=== PATIENT | female | born 1985 | race Caucasian/White ===

== ENCOUNTER 2019-08-28 01:19 | Emergency (ER) | payer OTHER, MEDICAID, SELFPAY ==
[2019-08-28 01:28] VITALS: BP 165/74; PULSE 88; RESP 20; TEMP 36.3; O2SAT 97
[2019-08-28 01:30] VITALS: BMI 47.6
--- NOTE | 2019-08-28 01:37 | ED.FEMALEGU ---
HPI - Female Genitourinary General Chief complaint: Urogenital-Female Stated complaint: left flank pain with nausea and vomiting 4 hours Time Seen by Provider: 08/28/19 01:29 Source: patient and family Mode of arrival: Ambulatory Limitations: no limitations History of Present Illness HPI Narrative: 33-year-old female nonsmoker with noncontributory medical history presents with her in the chief complaint of a sudden onset left flank pain that radiates into her groin. She states that it is very sharp and intense in nature and occasionally comes in waves that seemed to be unprovoked. She denies any recent injury. She has had multiple episodes of vomiting. She denies any change in bowel habits. She denies any burning, frequency or urgency with urination. She denies any history of kidney stone MD Complaint: pelvic pain Onset (ago): hour(s) Location: LLQ Female Urogenital Radiation: L Flank Severity: severe Quality: Sharp and Stabbing Duration: intermittent Relieving factors: none Exacerbating factors: none Urinary symptoms: Flank Pain Patient : No Associated symptoms: nausea/vomiting Related Data Previous Rx's Medication Instructions Recorded omeprazole magnesium [Prilosec OTC] 20 mg PO QDAY #30 11/12/16 ciprofloxacin HCl 500 mg PO BID #14 tab 08/28/19 hydrocodone-acetaminophen 1 tab PO Q4-6H PRN #10 tab 08/28/19 ketorolac 10 mg PO Q6H PRN #14 tab 08/28/19 tamsulosin [Flomax] 0.4 mg PO DAILY #10 cap 08/28/19 Allergies Allergy/AdvReac Type Severity Reaction Status Date / Time Sulfa (Sulfonamide Allergy Intermediate Verified 08/28/19 01:55 Antibiotics) [SULFA (SULFONAMIDE ANTIBIOTICS)] cefaclor [From CECLOR] Allergy Unknown Verified 08/28/19 01:55 latex [LATEX] Allergy Unknown Verified 08/28/19 01:55 oxycodone [OXYCODONE] Allergy Unknown STOPPED Verified 08/28/19 01:55 BREATHING Penicillins [PENICILLINS] Allergy Unknown Verified 08/28/19 01:55 Review of Systems Constitutional Constitutional: Denies chills, Denies fatigue, Denies fever(s), Denies frequent falls, Denies lethargy and Denies weakness Eyes Eyes: Denies change in vision, Denies eye discharge, Denies irritation and Denies loss of vision ENT Ears, Nose, Mouth, and Throat: Denies change in voice, Denies dizziness, Denies neck pain, Denies sore throat and Denies throat swelling Cardiovascular Cardiovascular: Denies chest pain, Denies irregular heart rhythm, Denies lightheadedness, Denies palpitations, Denies dyspnea, Denies dyspnea on exertion and Denies orthopnea Respiratory Respiratory: Denies cough, Denies dyspnea, Denies dyspnea on exertion and Denies wheezing Gastrointestinal Gastrointestinal: Denies abdominal pain, Denies change in bowel habits, Denies diarrhea, Denies nausea and Denies vomiting Genitourinary Genitourinary: Denies hematuria, Reports pelvic pain, Reports flank pain, Denies urinary incontinence and Denies urinary urgency Musculoskeletal Musculoskeletal: Denies back pain, Denies muscle weakness, Denies neck pain, Denies numbness and Denies tingling Integumentary/Breasts Skin/Breast: Denies pruritus, Denies erythema, Denies rash and Denies wounds Neurologic Neurologic: Denies behavioral changes, Denies confusion, Denies dizziness, Denies frequent falls, Denies loss of vision, Denies numbness, Denies tingling and Denies weakness Psychiatric Psychiatric: Denies anxiety, Denies behavioral changes, Denies confusion, Denies depression, Denies homicidal ideation and Denies suicidal ideation Endocrine Endocrine: Denies fatigue, Denies flushing and Denies palpitations Hematologic/Lymphatic Hematologic/Lymphatic: Denies easy bruising Allergic/Immunologic Allergic/Immunologic: Denies urticaria, Denies throat swelling and Denies wheezing Patient History marital status: housing: house Smoking Status: Never smoker Exam Narrative Exam Narrative: GENERAL: [33] year old patient appears stated age. Well-nourished, well-developed patient, in mild distress. Obviously in pain, rubbing her left leg, holding emesis bag HEAD: Atraumatic. Normocephalic. EYES: Pupils equal round and reactive. Extraocular motions intact. No scleral icterus. No injection or drainage. ENT: Nose without bleeding, purulent drainage. Throat without erythema, tonsillar hypertrophy or exudate. Airway patent. NECK: Trachea midline. Non tender CARDIOVASCULAR: Regular rate and rhythm without murmurs, gallops, or rubs. RESPIRATORY: Clear to auscultation. Breath sounds equal bilaterally. No wheezes, rales, or rhonchi. GASTROINTESTINAL: Abdomen soft, non-tender, nondistended. EXTREMITIES: No edema or joint tenderness. BACK: Nontender without deformity or crepitance. No flank tenderness. NEURO: AOx3. SKIN: No rash or erythema of visible areas Initial Vital Signs Initial Vital Signs: Vital Signs Temperature 97.4 F L 08/28/19 01:28 Pulse Rate 88 08/28/19 01:28 Respiratory Rate 20 08/28/19 01:28 Blood Pressure 165/74 H 08/28/19 01:28 Pulse Oximetry 97 08/28/19 01:28 Course Orders Ordered: ED Orders 08/28/19 01:38 CT kidney ureter bladder (KUB) Stat 08/28/19 01:40 Urine Culture Stat Urine Microscopic Stat 08/28/19 01:50 Basic Metabolic Panel Stat Complete Blood Count AUTO DIFF Stat Ondansetron HCl (Zofran) 4 mg IV Q4HR PRN PRN Reason: Nausea And Vomiting Last Admin: 08/28/19 01:56 Dose: 4 mg Documented by: RAYMON Discontinued Medications Hydrocodone Bitart/Acetaminophen (Vicodin 5/325 Prepack) 1 bottle MISC SEEINSTR ONE Stop: 08/28/19 03:55 Last Admin: 08/28/19 04:24 Dose: 1 bottle Documented by: RAYMON Hydromorphone HCl (Dilaudid) 0.5 mg IV NOW ONE Stop: 08/28/19 04:07 Last Admin: 08/28/19 04:24 Dose: 0.5 mg Documented by: RAYMON Sodium Chloride (Normal Saline 0.9%) 1,000 mls @ 1,000 mls/hr IV BOLUS ONE Stop: 08/28/19 03:36 Last Admin: 08/28/19 03:09 Dose: 1,000 mls/hr Documented by: RAYMON Ketorolac Tromethamine (Toradol) 15 mg IV NOW ONE Stop: 08/28/19 01:38 Last Admin: 08/28/19 01:55 Dose: 15 mg Documented by: RAYMON Levofloxacin (Levaquin) 500 mg PO NOW ONE Stop: 08/28/19 03:55 Last Admin: 08/28/19 04:24 Dose: 500 mg Documented by: RAYMON Vital Signs Vital signs: Vital Signs - 8 hr 08/28/19 01:28 Temperature 97.4 F L Pulse Rate 88 Respiratory Rate 20 Blood Pressure [Right Arm] 165/74 H Pulse Oximetry 97 MDM - Female Genitourinary Lab Data Result diagrams: 08/28/19 01:50 08/28/19 01:50 Labs: Lab Results 08/28/19 08/28/19 08/28/19 Range/Units 01:40 01:50 01:50 WBC 13.6 H (4.5-11.0) X10^3/uL RBC 5.04 (4.0-5.2) X10^6/uL Hgb 13.0 (12.0-16.0) g/dL Hct 38.8 (36-46) % MCV 77.1 L (80-100) fL MCH 25.9 L (26-34) PG MCHC 33.6 (30-36) % RDW 16.3 H (11.6-14.8) % Plt Count 278 (150-400) X10^3/uL Neut % (Auto) 85.3 H (50-75) % Lymph % (Auto) 10.4 L (25-40) % Swisher % (Auto) 3.5 (3-14) % Eos % (Auto) 0.1 L (2-4) % Baso % (Auto) 0.7 (0-2) % Neut # (Auto) 19508 H (1310-5313) /uL Lymph # (Auto) 1400 (8763-2036) /uL Swisher # (Auto) 500 (0-900) /uL Eos # (Auto) 0 (0-450) /uL Baso # (Auto) 100 (0-100) /uL Sodium 139 (137-145) mmol/L Potassium 4.5 (3.4-5.1) mmol/L Chloride 107 (98-107) mmol/L Carbon Dioxide 22 (22-32) mmol/L BUN 21 H (7-17) mg/dL Creatinine 0.90 (0.52-1.04) mg/dL Estimated GFR > 60.0 (>60) mL/min BUN/Creatinine Ratio 23.3 H (6-22) Glucose 128 H (70-100) mg/dL Calcium 9.7 (8.4-10.2) mg/dL Urine RBC None seen (0-5/HPF) Urine WBC 1-5/hpf (0-5/HPF) Ur Squamous Epith Cells 1-5 /hpf (0-5/HPF) Urine Bacteria Moderate (10-30) H (None) Urine Mucus 1+ H (Negative) Ur Culture Indicated? Specimen cultured Point of Care Testing Test Results Negative Urine Dip Bedside Urine Glucose Negative Bedside Urine Bilirubin + 1 Bedside Urine Ketone + 15 Urine Specific [place] 1.030 Bedside Urine Occult Blood - Negative Bedside Urine pH 5.5 Bedside Urine Protein +/- 15 Bedside Urine Urobilinogen - Negative Bedside Urine Nitrite - Negative Bedside Urine Leukocytes +/- [address] scan - abdomen/pelvis: Radiologist's Impression: 1 mm stone at left UVJ Discharge Plan Departure Patient Disposition: Home Clinical Impression: Kidney stone on left side Urinary tract infection Qualifiers: Urinary tract infection type: site unspecified Hematuria presence: without hematuria Qualified Code(s): N39.0 - Urinary tract infection, site not specified Instructions: DI for Kidney Stones Activity Restrictions/Additional Instructions: *You have been diagnosed with [acute left-sided ureteral stone with possible UTI] *What to do: *Take medications as directed: electronically sent to [facility] in [place] *Follow up with your primary care provider in 2-3 days, call for an appointment. Let them know you were seen in the Emergency Department and that we ask that you be seen in follow up *Return to ER if you should have any new, worsening or concerning symptoms Prescriptions: New hydrocodone-acetaminophen 5-325 mg tablet 1 tab PO Q4-6H PRN (Reason: pain) Qty: 10 RF: 0 ketorolac 10 mg tablet 10 mg PO Q6H PRN (Reason: pain) Qty: 14 RF: 0 tamsulosin [Flomax] 0.4 mg capsule 0.4 mg PO DAILY Qty: 10 RF: 0 ciprofloxacin HCl 500 mg tablet 500 mg PO BID Qty: 14 RF: 0 No Action omeprazole magnesium [Prilosec OTC] 20 MG tablet,delayed release (DR/EC) 20 mg PO QDAY Qty: 30 RF: 0 Referrals: Mariya Muñoz DO [Primary Care Provider] -
--- NOTE | 2019-08-28 01:38 | DI.CT.S_ITS ---
PROCEDURE: CT KIDNEY URETER BLADDER (KUB) INDICATIONS: severe LLQ and L flank pain TECHNIQUE: Noncontrast 5 mm thick sections acquired from the diaphragms to the symphysis. 5 mm thick coronal and sagittal reformats were then performed. For radiation dose reduction, the following was used: automated exposure control, adjustment of mA and/or kV according to patient size. COMPARISON: [facility], CT, CT ABDOMEN PELVIS WITH CONTRAST, 05/26/2017, 2:43. FINDINGS: Image quality: Excellent. Lung bases: Lung bases are clear. Heart size is normal. Urinary system: Both kidneys are normal size. No nephrolithiasis. No right hydronephrosis, hydroureter, or ureterolithiasis. There is mild left perinephric fat stranding. There is trace left hydronephrosis and hydroureter. A 2 mm calculus is present within the distal left ureter (series 2/image 81). Bladder is decompressed. No bladder stones. An IUD is present within the uterine fundus. There are likely bilateral low-density ovarian cysts both of which are likely physiologic by size in a premenopausal patient. Other solid organs: Liver is normal in size. Gallbladder is surgically absent. Pancreas is normal in contours. Spleen is normal in size. No adrenal nodules. Peritoneum and bowel: Unenhanced bowel loops demonstrate normal wall thickness and caliber. The appendix is thin walled. No free fluid or air. Nodes and vessels: No retroperitoneal or mesenteric adenopathy by size criteria. Aorta and inferior vena cava are normal in caliber. Abdominal wall: No ventral hernias. Pelvis: No free pelvic fluid. No inguinal hernias or adenopathy. Bones: No suspicious bony lesions. No vertebral body compression fractures. There are minimally displaced L5-S1 pars interarticularis defects as before. 18IMPRESSION: 1. 2 mm distal left ureteral calculus with mild left hydronephrosis, perinephric fat stranding, and hydroureter. These findings are concordant with the overnight interpretation. Dictated by: Roxy Bender M.D. on 08/28/2019 at 7:42 Approved by: Roxy Bender M.D. on 08/28/2019 at 7:56
[2019-08-28] MEDS: KETOROLAC 60 MG/2 ML VIAL 15 MG IV (01:55)
[2019-08-28] MEDS: ONDANSETRON 4 MG/2 ML INJ IV (01:56)
[2019-08-28 01:58] LABS: RBC Urine None Seen (0-5/HPF)
[2019-08-28 03:01] LABS: Bacteria Urine Moderate (10-30); Culture Indicated Urine Specimen Cultured; Mucus Urine 1+ (Negative); Squamous Epithelial Cell Urine 1-5 /HPF (0-5/HPF); WBC Urine 1-5/HPF (0-5/HPF)
[2019-08-28 03:07] LABS: Add Manual Diff / Slide Review NO; Basophils Absolute Auto 100 /uL (0-100); Basophils Percent Auto 0.7 % (0-2); Eosinophils Absolute Auto 0 /uL (0-450); Eosinophils Percent Auto 0.1 % (2-4); Hematocrit 38.8 % (36-46); Lymphocytes Absolute Auto 1400 /uL (1100-4500); Lymphocytes Percent Auto 10.4 % (25-40); Mean Corpuscular HGB Conc 33.6 % (30-36); Mean Corpuscular Hemoglobin 25.9 PG (26-34); Mean Corpuscular Volume 77.1 fL (80-100); Monocytes Absolute Auto 500 /uL (0-900); Monocytes Percent Auto 3.5 % (3-14); Neutrophils Absolute Auto 11600 /uL (1500-7000); Neutrophils Percent Auto 85.3 % (50-75); Platelet Count 278 X10^3/uL (150-400); Red Blood Cell Count 5.04 X10^6/uL (4.0-5.2); Red Cell Distribution Width 16.3 % (11.6-14.8); White Blood Cell Count 13.6 X10^3/uL (4.5-11.0)
[2019-08-28] MEDS: SODIUM CHLORIDE 0.9% 1,000 ML 1000 ML IV (03:09)
[2019-08-28 03:10] LABS: BUN Creatinine Ratio 23.3 (6-22); Blood Urea Nitrogen 21 mg/dL (7-17); Calcium 9.7 mg/dL (8.4-10.2); Carbon Dioxide 22 mmol/L (22-32); Chloride 107 mmol/L (98-107); Estimated Glomerular Filt Rate > 60.0 mL/min (>60); Glucose 128 mg/dL (70-100); HEMOLYSIS < 15 (0-50); Potassium 4.5 mmol/L (3.4-5.1); Sodium 139 mmol/L (137-145)
[2019-08-28] MEDS: HYDROMORPHONE 0.5 MG INJ IV (04:24)
[2019-08-28] MEDS: HYDROCODONE/ACET 5/325 PREPACK 1 BOTTLE MISC (04:24)
[2019-08-28] MEDS: levoFLOXacin 250 MG TABLET 500 MG PO (04:24)
[2019-08-28 04:53] VITALS: BP 165/84; PULSE 88; RESP 16; O2SAT 99
== END 2019-08-28 05:01 | disposition home or self-care (01) ==
PROVIDERS: Emergency Provider Emergency Medicine; Family Provider Family Medicine; PCP Family Medicine
DX: N20.0 Calculus of kidney (principal); N39.0 Urinary tract infection, site not specified
CPT/HCPCS: 36415; 74176; 80048; 81003; 81015; 81025; 85025; 87086; 96361; 96374; 96375; 99284; J1170; J1885; J2405

== ENCOUNTER 2019-11-10 17:58 | Emergency (ER) | payer OTHER, MEDICAID, SELFPAY ==
[2019-11-10 18:05] VITALS: BMI 46.0
--- NOTE | 2019-11-10 18:06 | DI.RAD.S_ITS ---
PROCEDURE: XR FOOT RT MIN 3V INDICATIONS: fall, pain TECHNIQUE: 3 views of the foot were acquired. COMPARISON: None. FINDINGS: Bones: No fractures or dislocations. No suspicious bony lesions. Soft tissues: No tibiotalar joint effusion. Achilles tendon appears normal. IMPRESSION: No visualized acute fracture or dislocation. However, if clinical concern and/or pain persist, short interval imaging followup in 7-10 days is recommended, as occult injury cannot be definitively excluded. Dictated by: Kathy Pacheco M.D. on 11/10/2019 at 18:31 Approved by: Kathy Pacheco M.D. on 11/10/2019 at 18:31
[2019-11-10 18:38] VITALS: BP 140/90; PULSE 86; RESP 16; TEMP 37; O2SAT 99
--- NOTE | 2019-11-10 18:50 | ED_ITS ---
HPI - Fall General Chief Complaint: Fall Stated Complaint: GLF 2 days ago, top R foot pain, radiates up leg Time Seen by Provider: 11/10/19 18:12 Source: patient Mode of arrival: Wheelchair Limitations: no limitations History of Present Illness HPI Narrative: 33F nonsmoker with history of kidney stones presents with ongoing right ankle pain since a fall two days ago. She was walking down stairs and when stepping onto the ground she misjudged the last step and twisted her ankle and fell. Her pain is worse with weightbearing and palpation and radiates up her kiser. She denies knee, hip or other pain. She has had no numbness, weakness or tingling. She denies any history of the same. MD complaint: fall Onset (ago): day(s) Fall from: standing Fall witnessed: no Place fall occurred: street Loss of consciousness: none Length of LOC: second(s) Prolonged down time: no Symptoms prior to fall: none Context: tripped/slipped Location of injury - extremities: Left: ankle Severity: moderate Quality: aching Related Data Previous Rx's Medication Instructions Recorded omeprazole magnesium [Prilosec OTC] 20 mg PO QDAY #30 11/12/16 ciprofloxacin HCl 500 mg PO BID #14 tab 08/28/19 hydrocodone-acetaminophen 1 tab PO Q4-6H PRN #10 tab 08/28/19 ketorolac 10 mg PO Q6H PRN #14 tab 08/28/19 tamsulosin [Flomax] 0.4 mg PO DAILY #10 cap 08/28/19 Allergies Allergy/AdvReac Type Severity Reaction Status Date / Time Sulfa (Sulfonamide Allergy Intermediate Verified 11/10/19 18:04 Antibiotics) [SULFA (SULFONAMIDE ANTIBIOTICS)] cefaclor [From CECLOR] Allergy Unknown Verified 11/10/19 18:04 latex [LATEX] Allergy Unknown Verified 11/10/19 18:04 oxycodone [OXYCODONE] Allergy Unknown STOPPED Verified 11/10/19 18:04 BREATHING Penicillins [PENICILLINS] Allergy Unknown Verified 11/10/19 18:04 Review of Systems Constitutional Constitutional: Denies chills, Denies fatigue, Denies fever(s), Denies frequent falls, Denies lethargy and Denies weakness Eyes Eyes: Denies change in vision, Denies eye discharge, Denies irritation and Denies loss of vision ENT Ears, Nose, Mouth, and Throat: Denies change in voice, Denies dizziness, Denies neck pain, Denies sore throat and Denies throat swelling Cardiovascular Cardiovascular: Denies chest pain, Denies irregular heart rhythm, Denies lighthe adedness, Denies palpitations, Denies dyspnea, Denies dyspnea on exertion and Denies orthopnea Respiratory Respiratory: Denies cough, Denies dyspnea, Denies dyspnea on exertion and Denies wheezing Gastrointestinal Gastrointestinal: Denies abdominal pain, Denies change in bowel habits, Denies diarrhea, Denies nausea and Denies vomiting Genitourinary Genitourinary: Denies hematuria, Denies flank pain, Denies urinary incontinence and Denies urinary urgency Musculoskeletal Musculoskeletal: Denies back pain, Reports joint swelling, Reports limited range of motion, Denies muscle weakness, Denies neck pain, Denies numbness, Reports radiating pain into limb and Denies tingling Integumentary/Breasts Skin/Breast: Denies pruritus, Denies erythema, Denies rash and Denies wounds Neurologic Neurologic: Denies behavioral changes, Denies confusion, Denies dizziness, Denies frequent falls, Denies loss of vision, Denies numbness, Denies tingling and Denies weakness Psychiatric Psychiatric: Denies anxiety, Denies behavioral changes, Denies confusion, Denies depression, Denies homicidal ideation and Denies suicidal ideation Endocrine Endocrine: Denies fatigue, Denies flushing and Denies palpitations Hematologic/Lymphatic Hematologic/Lymphatic: Denies easy bruising Allergic/Immunologic Allergic/Immunologic: Denies urticaria, Denies throat swelling and Denies wheezing Patient History Social History marital status: housing: house Smoking Status: Never smoker Smoking Status: Never smoker alcohol intake frequency: 0-2 drinks per day Substance Use Type: does not use Exam Narrative Exam Narrative: GENERAL: [33] year old patient appears stated age. Well- nourished, well-developed patient, in mild distress. HEAD: Atraumatic. Normocephalic. EYES: Pupils equal round and reactive. Extraocular motions intact. No scleral icterus. No injection or drainage. ENT: Nose without bleeding, purulent drainage. Throat without erythema, tonsillar hypertrophy or exudate. Airway patent. NECK: Trachea midline. Non tender CARDIOVASCULAR: Regular rate and rhythm without murmurs, gallops, or rubs. RESPIRATORY: Clear to auscultation. Breath sounds equal bilaterally. No wheezes, rales, or rhonchi. GASTROINTESTINAL: Abdomen soft, non-tender, nondistended. EXTREMITIES: TTP, edema and ecchymosis distal to lateral malleolus. Tender to palpation in distribution of ATF. Additional tenderness to squeeze of lower leg consistent with possible syndesmotic injury. Additional tenderness to palpation of proximal fibula. Otherwise knee exam normal. No effusion, ligamentous laxity or other bony tenderness. BACK: Nontender without deformity or crepitance. No flank tenderness. NEURO: AOx3. SKIN: No rash or erythema of visible areas Initial Vital Signs Initial Vital Signs: Vital Signs Temperature 98.6 F 11/10/19 18:38 Pulse Rate 86 11/10/19 18:38 Respiratory Rate 16 11/10/19 18:38 Blood Pressure 140/90 11/10/19 18:38 Pulse Oximetry 99 11/10/19 18:38 Procedures Orthopedic Splinting/Casting Injury #1: Side: right Lower Extremity Injury Location: ankle Lower Extremity Immobilizer: boot orthosis Other Orthopedic Equipment: crutches Post splinting neuro exam: intact Post splinting vascular exam: intact Placed by: Nursing Course Orders Ordered: ED Orders 11/10/19 18:06 XR foot RT min 3V Stat 11/10/19 18:53 XR ankle RT min 3V Stat XR knee RT 3V Stat Vital Signs Vital signs: Vital Signs - 8 hr 11/10/19 18:38 11/10/19 20:01 11/10/19 20:20 Temperature 98.6 F Pulse Rate 86 79 87 Respiratory Rate 16 17 15 Blood Pressure 138/84 Blood Pressure [Right Arm] 140/90 151/92 H Pulse Oximetry 99 98 98 MDM - Fall Imaging Data Extremity x-ray #1: Radiologist's Impression: Chart Viewer Diagnostics DATE TYPE STATUS AUTHOR Frantz 11/10/19 18:53 Kathy Pacheco 11/10/19 18:53 Kathy Pacheco 11/10/19 18:06 Kathy Pacheco 08/28/19 01:38 Roxy Bender Melissa L 33, F1985 [facility] ER, Main ED 170.18cm 133.356kg BMI: 46.0kg/m? Fall Search Chart No Data to Display STOPPED BREATHING ONSET 11/10/19 20:20 Anne Marie Stanley 33 F [address] [address] XRay Report Signed Patient: Anne Marie Stanley LMR#: [id number] : 1985Acct:[id number] Age/Sex: 33 / FDate of Service: 11/10/19 Loc: ED Accession Number: [id number] Procedure: XR foot RT min 3V Ordering Provider: Jovani Sanders D.O. PROCEDURE: XR FOOT RT MIN 3V INDICATIONS: fall, pain TECHNIQUE: 3 views of the foot were acquired. COMPARISON: None. FINDINGS: Bones: No fractures or dislocations. No suspicious bony lesions. Soft tissues: No tibiotalar joint effusion. Achilles tendon appears normal. IMPRESSION: No visualized acute fracture or dislocation. However, if clinical concern and/or pain persist, short interval imaging followup in 7-10 days is recommended, as occult injury cannot be definitively excluded. Dictated by: Kathy Pacheco M.D. on 11/10/2019 at 18:31 Approved by: Kathy Pacheco M.D. on 11/10/2019 at 18:31 Anne Marie Stanley 33 F [address] [address] XRay Report Signed Patient: Anne Marie Stanley LMR#: [id number] : 1985Acct:[id number] Age/Sex: 33 / FDate of Service: 11/10/19 Loc: ED Accession Number: [id number] Procedure: XR ankle RT min 3V Ordering Provider: Jovani Sanders D.O. PROCEDURE: XR ANKLE RT MIN 3V INDICATIONS: lateral mall tender to palp, swelling and ecchymosis TECHNIQUE: 3 views of the ankle were acquired. COMPARISON: [facility], , XR FOOT RT MIN 3V, 11/10/2019, 17:59. FINDINGS: Bones: No fractures or dislocations. Ankle mortise is normally aligned. No suspicious bony lesions. Soft tissues: Mild ankle edema. Achilles tendon appears normal. IMPRESSION: Mild ankle edema. No visualized acute fracture or dislocation. However, if clinical concern and/or pain persist, short interval imaging followup in 7-10 days is recommended, as occult injury cannot be definitively excluded. Dictated by: Kathy Pacheco M.D. on 11/10/2019 at 19:19 Approved by: Kathy Pacheco M.D. on 11/10/2019 at 19:20 Chart Viewer Diagnostics DATE TYPE STATUS AUTHOR Hx 11/10/19 18:53 Kathy Pacheco 11/10/19 18:53 Kathy Pacheco 11/10/19 18:06 Kathy Pacheco 08/28/19 01:38 Roxy Bender Melissa L 33, F1985 [facility], [facility] ED 170.18cm 133.356kg BMI: 46.0kg/m? Fall Search Chart No Data to Display STOPPED BREATHING ONSET 11/10/19 20:20 Anne Marie Stanley 33 F 1985 [place] [address] XRay Report Signed Patient: Anne Marie Stanley LMR#: [id number] : 1985Acct:[id number] Age/Sex: 33 / FDate of Service: 11/10/19 Loc: ED Accession Number: [id number] Procedure: XR knee RT 3V Ordering Provider: Jovani Sanders D.O. PROCEDURE: XR KNEE RT 3V INDICATIONS: proximal fibular tenderness after forceful ankle inversion TECHNIQUE: 3 views of the knee were acquired. COMPARISON: None. FINDINGS: Bones: No fractures or dislocations. No suspicious bony lesions. Soft tissues: No joint effusion. No suspicious soft tissue calcifications. IMPRESSION: No visualized acute fracture or dislocation. However, if clinical concern and/or pain persist, short interval imaging followup in 7-10 days is recommend ed, as occult injury cannot be definitively excluded. Dictated by: Kathy Pacheco M.D. on 11/10/2019 at 19:19 Approved by: Kathy Pacheco M.D. on 11/10/2019 at 19:19 Discharge Plan Departure Patient Disposition: Home Clinical Impression: High ankle sprain of right lower extremity Qualifiers: Encounter type: initial encounter Qualified Code(s): S93.491A - Sprain of other ligament of right ankle, initial encounter Ankle sprain Qualifiers: Encounter type: initial encounter Involved ligament of ankle: anterior talofibular ligament Laterality: right Qualified Code(s): S93.491A - Sprain of other ligament of right ankle, initial encounter Discharge Date/Time: 11/10/19 20:21 Instructions: How to Prevent Falls Activity Restrictions/Additional Instructions: *You have been diagnosed with [right ankle sprain with possible syndesmotic lesion] *What to do: *Take medications as directed: Motrin or Tylenol. Limited weight bearing. *Follow up with your primary care provider in 2-3 days, call for an appointment. Let them know you were seen in the Emergency Department and that we ask that you be seen in follow up *Return to ER if you should have any new, worsening or concerning symptoms Prescriptions: No Action omeprazole magnesium [Prilosec OTC] 20 MG tablet,delayed release (DR/EC) 20 mg PO QDAY Qty: 30 RF: 0 hydrocodone-acetaminophen 5-325 mg tablet 1 tab PO Q4-6H PRN (Reason: pain) Qty: 10 RF: 0 ketorolac 10 mg tablet 10 mg PO Q6H PRN (Reason: pain) Qty: 14 RF: 0 tamsulosin [Flomax] 0.4 mg capsule 0.4 mg PO DAILY Qty: 10 RF: 0 ciprofloxacin HCl 500 mg tablet 500 mg PO BID Qty: 14 RF: 0 Referrals: Amy Godfrey MD [Physician] - Mariya Muñoz DO [Primary Care Provider] -
--- NOTE | 2019-11-10 18:53 | DI.RAD.S_ITS ---
PROCEDURE: XR ANKLE RT MIN 3V INDICATIONS: lateral mall tender to palp, swelling and ecchymosis TECHNIQUE: 3 views of the ankle were acquired. COMPARISON: [facility], , XR FOOT RT MIN 3V, 11/10/2019, 17:59. FINDINGS: Bones: No fractures or dislocations. Ankle mortise is normally aligned. No suspicious bony lesions. Soft tissues: Mild ankle edema. Achilles tendon appears normal. IMPRESSION: Mild ankle edema. No visualized acute fracture or dislocation. However, if clinical concern and/or pain persist, short interval imaging followup in 7-10 days is recommended, as occult injury cannot be definitively excluded. Dictated by: Kathy Pacheco M.D. on 11/10/2019 at 19:19 Approved by: Kathy Pacheco M.D. on 11/10/2019 at 19:20
--- NOTE | 2019-11-10 18:53 | DI.RAD.S_ITS ---
PROCEDURE: XR KNEE RT 3V INDICATIONS: proximal fibular tenderness after forceful ankle inversion TECHNIQUE: 3 views of the knee were acquired. COMPARISON: None. FINDINGS: Bones: No fractures or dislocations. No suspicious bony lesions. Soft tissues: No joint effusion. No suspicious soft tissue calcifications. IMPRESSION: No visualized acute fracture or dislocation. However, if clinical concern and/or pain persist, short interval imaging followup in 7-10 days is recommended, as occult injury cannot be definitively excluded. Dictated by: Kathy Pacheco M.D. on 11/10/2019 at 19:19 Approved by: Kathy Pacheco M.D. on 11/10/2019 at 19:19
[2019-11-10 20:01] VITALS: BP 151/92; PULSE 79; RESP 17; O2SAT 98
[2019-11-10 20:20] VITALS: BP 138/84; PULSE 87; RESP 15; O2SAT 98
== END 2019-11-10 20:21 | disposition home or self-care (01) ==
PROVIDERS: Emergency Provider Emergency Medicine; Family Provider Family Medicine; PCP Family Medicine
DX: S93.491A Sprain of other ligament of right ankle, initial encounter (principal); W10.9XXA Fall (on) (from) unspecified stairs and steps, initial encounter
CPT/HCPCS: 73562; 73610; 73630; 99283; 99284

== ENCOUNTER → 2021-09-16 10:42 | Outpatient (CLI) | payer OTHER, MEDICAID, SELFPAY ==
--- NOTE | 2021-09-16 | DI.US.S_ITS ---
ULTRASOUND OF RIGHT AXILLA: 09/16/2021 CLINICAL: Palpable right axilla lump. Comparison is made to exam dated: 09/16/2021 mammogram - [facility]. Color flow and real-time ultrasound of the right axilla were performed. Reed scale images of the real-time examination were reviewed. No significant abnormalities were seen sonographically in the right axilla. IMPRESSION: NEGATIVE There is no sonographic evidence of malignancy. This exam was interpreted at Station ID: [id number]. Electronically Signed By: Jian Thakur M.D., jr/oliverio:09/16/2021 12:35:07 letter sent: Normal Exam Ultrasound BI-RADS: 1 Negative
--- NOTE | 2021-09-16 | DI.MG.S_ITS ---
BILATERAL DIGITAL DIAGNOSTIC MAMMOGRAM 3D/2D: 09/16/2021 CLINICAL: Palpable right axilla lump. No prior exams were available for comparison. The tissue of both breasts is extremely dense, which lowers the sensitivity of mammography. No significant masses, calcifications, or other findings are seen in either breast. IMPRESSION: INCOMPLETE: NEEDS ADDITIONAL IMAGING EVALUATION Normal mammogram. Right axillary ultrasound will be performed as there is a reported history of palpable fullness in the right axilla. This exam was interpreted at Station ID: [id number]. NOTE: For mammograms, a report in lay terms will be sent to the patient. Approximately 15% of breast malignancies will not be visualized mammographically. In the management of a palpable breast mass, a negative mammogram must not discourage biopsy of a clinically suspicious lesion. Electronically Signed By: Jian Thakur M.D. jr/:09/16/2021 12:31:05 Entry: cm - 09/17/2021 07:02:08 ACR BI-RADS Category 0: Incomplete 3340F
== END ==
PROVIDERS: Family Provider Family Medicine; PCP Nurse Practitioner; Referring Provider Physician Assistant Medical; Visit Provider Physician Assistant Medical
DX: N63.31 Unspecified lump in axillary tail of the right breast (principal); R92.8 Other abnormal and inconclusive findings on diagnostic imaging of breast
CPT/HCPCS: 76882; 77066; G0279

== ENCOUNTER → 2022-03-18 07:46 | Outpatient (CLI) | payer OTHER, SELFPAY | PROVIDERS: Family Provider Family Medicine; PCP Nurse Practitioner; Referring Provider Internal Medicine; Visit Provider Internal Medicine | DX: Z23 Encounter for immunization (principal) | CPT/HCPCS: 90471; 90686 ==

== ENCOUNTER 2022-05-01 15:43 | Emergency (ER) | payer OTHER, SELFPAY ==
[2022-05-01 16:03] VITALS: BP 145/90; PULSE 79; RESP 18; TEMP 36.7; O2SAT 98; BMI 43.8
[2022-05-01 18:13] LABS: Alanine Aminotransferase 31 IU/L (<35)
--- NOTE | 2022-05-01 18:32 | ED.GENADULT ---
HPI - General Adult <APPLE Cardenas - Last Filed: 05/01/22 18:37> General Chief complaint: Blood/Body fluid exposure Stated complaint: needle stick Time Seen by Provider: 05/01/22 17:54 History of Present Illness HPI narrative: This is a 36-year-old female presents to the emergency department for a needle stick with exposure after gave a vaccine to assess mental patient today in clinic. She accidentally stuck herself in his finger afterwards, there was small amount blood that came out, she washed her hands with Hibiclens afterwards and has not had any complications. She denies any further pain, states that the baby was getting his vaccinations and otherwise up-to-date on them. She has received a hepatitis booster as an adult. She declines wanting HIV or hepatitis prophylaxis Related Data Previous Rx's Medication Instructions Recorded omeprazole magnesium 20 mg 20 mg PO QDAY ##30 11/12/16 tablet,delayed release (Prilosec OTC) hydrocodone 5 mg-acetaminophen 325 1 tab PO Q4-6H PRN pain #10 tabs 08/28/19 mg tablet ketorolac 10 mg tablet 10 mg PO Q6H PRN pain #14 tabs 08/28/19 tamsulosin 0.4 mg capsule (Flomax) 0.4 mg PO DAILY #10 caps 08/28/19 Allergies Allergy/AdvReac Type Severity Reaction Status Date / Time Sulfa (Sulfonamide Allergy Intermediate Verified 01/03/22 16:30 Antibiotics) [SULFA (SULFONAMIDE ANTIBIOTICS)] cefaclor [From CECLOR] Allergy Unknown Verified 01/03/22 16:30 latex [LATEX] Allergy Unknown Verified 01/03/22 16:30 oxycodone [OXYCODONE] Allergy Unknown STOPPED Verified 01/03/22 16:30 BREATHING Penicillins [PENICILLINS] Allergy Unknown Verified 01/03/22 16:30 Review of Systems <APPLE Cardenas - Last Filed: 05/01/22 18:37> Review of Systems Narrative: Review of systems is negative for acute abnormalities unless otherwise noted in HPI Patient History <APPLE Cardenas - Last Filed: 05/01/22 18:37> Social History marital status: housing: house Smoking Status: Never smoker Smoking Status: Never smoker alcohol intake frequency: 0-2 drinks per day Substance Use Type: does not use Exam <APPLE Cardenas - Last Filed: 05/01/22 18:37> Narrative Exam Narrative: Reviewed vitals signs and nursing notes. General: cooperative, comfortable, in no acute distress, well groomed Skin: brisk capillary refill, without pallor or erythema, small puncture wound to finger which has healed over Neuro: normal speech and cognition, A&O x3, ambulatory, clear speech Psych: mental status is grossly normal, congruent mood, normal affect, pleasant and cooperative Initial Vital Signs Initial Vital Signs: Vital Signs Temperature 98.1 F 05/01/22 16:03 Pulse Rate 79 05/01/22 16:03 Respiratory Rate 18 05/01/22 16:03 Blood Pressure 145/90 H 05/01/22 16:03 Pulse Oximetry 98 05/01/22 16:03 Oxygen Delivery Method 05/01/22 16:03 <Fausto Tolentino MD - Last Filed: 05/02/22 02:04> Initial Vital Signs Initial Vital Signs: Vital Signs Temperature 98.1 F 05/01/22 16:03 Pulse Rate 79 05/01/22 16:03 Respiratory Rate 18 05/01/22 16:03 Blood Pressure 145/90 H 05/01/22 16:03 Pulse Oximetry 98 05/01/22 16:03 Oxygen Delivery Method 05/01/22 16:03 Course <APPLE Cardenas - Last Filed: 05/01/22 18:37> Orders Ordered: Discontinued Medications Diphtheria/Tetanus/Acell Pertussis (Tet,Diph,Pertuss(Acell),Vac/Pf 0.5 Ml Syringe) 0.5 ml IM .ONCE ONE Stop: 05/01/22 18:15 Last Admin: 05/01/22 18:43 Dose: 0.5 ml Documented By: MELLISA Vital Signs Vital signs: Vital Signs - 8 hr 05/01/22 16:03 Temperature 98.1 F Pulse Rate 79 Respiratory Rate 18 Blood Pressure 145/90 H Pulse Oximetry 98 Oxygen Delivery Method Room Air <Fausto Tolentino MD - Last Filed: 05/02/22 02:04> Orders Ordered: Discontinued Medications Diphtheria/Tetanus/Acell Pertussis (Tet,Diph,Pertuss(Acell),Vac/Pf 0.5 Ml Syringe) 0.5 ml IM .ONCE ONE Stop: 05/01/22 18:15 Last Admin: 05/01/22 18:43 Dose: 0.5 ml Documented By: MELLISA Vital Signs Vital signs: Vital Signs - 8 hr 05/01/22 16:03 Temperature 98.1 F Pulse Rate 79 Respiratory Rate 18 Blood Pressure 145/90 H Pulse Oximetry 98 Oxygen Delivery Method Room Air Medical Decision Making <APPLE Cardenas - Last Filed: 05/01/22 18:37> Lab Data Labs: Lab Results 05/01/22 05/01/22 Range/Units 17:52 17:52 ALT 31 (<35) IU/L Hep Bs Antigen Negative (NEGATIVE) s/c Hepatitis C Antibody Negative (NEGATIVE) s/c HIV 1&2 Ab/P24 Ag 4thGn Negative (NEGATIVE) MDM Narrative Medical decision making narrative: This is a 36-year-old female who works over at the [employer] who presents with a needlestick injury with blood borne exposure after vaccinating a 6-month-old infant today. Paperwork packet for exposures was filled out by myself and the patient, she was dropping off at [employer], she declines hepatitis booster as well as HIV prophylaxis and hepatitis prophylaxis. She is received the hepatitis booster as an adult. Otherwise she is up-to-date on her vaccinations. [id number], Adacel was updated today. Patient is appropriate and amenable to discharge home. Vital signs are stable on repeat examination is unremarkable. Patient has been informed of results. Patient has been given strict return to ER precautions for any new or worsening symptoms. Patient understands to follow up closely with outpatient providers as instructed. Patient understands plan and agrees to discharge home. All questions and concerns answered at this time. <Fausto Tolentino MD - Last Filed: 05/02/22 02:04> Lab Data Labs: Lab Results 05/01/22 05/01/22 Range/Units 17:52 17:52 ALT 31 (<35) IU/L Hep Bs Antigen Negative (NEGATIVE) s/c Hepatitis C Antibody Negative (NEGATIVE) s/c HIV 1&2 Ab/P24 Ag 4thGn Negative (NEGATIVE) Discharge Plan Departure Patient Disposition: Home Clinical Impression: Needlestick injury accident, Work related injury, Exposure to blood or body fluid Instructions: DI for Accidental Exposure to Body Fluids Activity Restrictions/Additional Instructions: *You have been diagnosed with needle stick and blood borne exposure. Please follow-up with employee health if they call you and have questions or have information for you. Your labs were drawn, this is in employee health hands now, they will source the patient and follow-up accordingly. Thank you for your patients today, I hope that you have a nice weekend. [id number], your tetanus was updated today, you do not need another for 10 years. *What to do: *Please continue to take your regular medications as directed. [ ] New medication prescriptions sent to your pharmacy: [ ] [ ] New medication written as a paper prescription [x ] No new medications given *Please follow up with your primary care provider in 2-3 days, call for an appointment. Let them know you were seen in the Emergency Department and that we asked that you be seen for follow-up. We will electronically transmit a record of today's note if your PCP is in our system *If you do not have a primary care provider please contact [phone] to establish care with one of [facility] primary care providers. *Return to Emergency Department if you should have any new, worsening, or concerning symptoms, such as [fever greater than 101F, chills, worsening pain, persistent vomiting or other bothersome symptoms]. Prescriptions: No Action omeprazole magnesium [Prilosec OTC] 20 MG tablet,delayed release (DR/EC) 20 mg PO QDAY Qty: 30 0RF hydrocodone-acetaminophen 5-325 mg tablet 1 tab PO Q4-6H PRN (Reason: pain) Qty: 10 0RF ketorolac 10 mg tablet 10 mg PO Q6H PRN (Reason: pain) Qty: 14 0RF tamsulosin [Flomax] 0.4 mg capsule 0.4 mg PO DAILY Qty: 10 0RF Referrals: Olinda Long ARNP [Primary Care Provider] - Visit Report Forms: Patient Portal/API <Fausto Tolentino MD - Last Filed: 05/02/22 02:04> [facility]: I was immediately available in the department for consultation. ?This documentation has been reviewed and I agree with assessment and plan. Supervised by Fausto Tolentino MD
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
[2022-05-01] MEDS: TET,DIPH,PERTUSS(ACELL),VAC/PF 0.5 ML SYRINGE IM (18:43)
[2022-05-01 18:50] LABS: Hepatitis B Surface Antigen NEGATIVE s/c (NEGATIVE)
[2022-05-01 19:04] LABS: HIV 1 & 2 Ab/Ag 4th Gen Combo NEGATIVE (NEGATIVE); Hep C Virus Ab w/Reflex Quant NEGATIVE s/c (NEGATIVE)
[2022-05-03 03:10] LABS: Hepatitis B Surf Ab Qualitativ Reactive (.)
== END 2022-05-01 18:45 | disposition home or self-care (01) ==
PROVIDERS: Emergency Medicine; Emergency Provider Nurse Practitioner Critical Care Medicine; Family Provider Family Medicine; PCP Nurse Practitioner
DX: S61.239A Puncture wound without foreign body of unspecified finger without damage to nail, initial encounter (principal); W26.8XXA Contact with other sharp object(s), not elsewhere classified, initial encounter; Y92.531 Health care provider office as the place of occurrence of the external cause; Y99.0 Civilian activity done for income or pay; Z23 Encounter for immunization; Z77.21 Contact with and (suspected) exposure to potentially hazardous body fluids
CPT/HCPCS: 90471; 96372; 99283; 90715

== ENCOUNTER → 2022-09-12 15:42 | Outpatient (CLI) | payer OTHER, MEDICAID, SELFPAY ==
--- NOTE | 2022-09-12 | DI.CT.S_ITS ---
PROCEDURE: CT SINUS SCREEN WO CON INDICATIONS: Chronic pansinusitis TECHNIQUE: Noncontrast 3.0 mm axial images acquired from the frontal sinuses to the mid-sella, with coronal and sagittal reformats. For radiation dose reduction, the following was used: automated exposure control, adjustment of mA and/or kV according to patient size. COMPARISON: None. FINDINGS: Image quality: Excellent. Maxillary Sinuses: There is a prominent mucous retention cyst seen within the left maxillary sinus. Mild areas of mucosal thickening can be seen elsewhere within the maxillary sinuses. Mild bony demineralization can be seen involving the medial wall of the left maxillary sinus. Ethmoid Air Cells: No bony remodeling or destruction. Sinuses are clear. Sphenoid Sinuses: No bony remodeling or destruction. Sinuses are clear. Frontal Sinuses: No bony remodeling or destruction. Sinuses are clear. Ostiomeatal Complexes: The ostiomeatal complexes are patent, yet they are constitutionally narrowed, with bilateral Red cells. Miscellaneous: Visualized intra-orbital contents are normal. No jenn bullosa or paradoxical turbinate curvature. There is mild to moderate rightward nasal septal deviation. IMPRESSION: Focal left maxillary sinus mucous retention cyst. Milder paranasal sinus disease is seen elsewhere. The ostiomeatal complexes are patent, yet they are constitutionally narrowed, with bilateral Red cells. [id number]-[id number] rightward nasal septal deviation can be seen. Dictated by: Jeremy Levine M.D. on 09/12/2022 at 15:48 Approved by: Jeremy Levine M.D. on 09/12/2022 at 15:50
== END ==
PROVIDERS: Family Provider Nurse Practitioner; PCP Nurse Practitioner; Referring Provider Otolaryngology; Visit Provider Otolaryngology
DX: R09.82 Postnasal drip (principal); J32.4 Chronic pansinusitis; J34.1 Cyst and mucocele of nose and nasal sinus; J34.2 Deviated nasal septum
CPT/HCPCS: 70486

== ENCOUNTER 2022-11-12 09:00 | Outpatient (RCR) | payer OTHER, SELFPAY ==
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
--- NOTE | 2022-09-10 18:14 | PT.OPPOC ---
Physical, Occupational & Speech Therapy At [facility] Current Diagnoses Pain in right shoulder (09/10/22) Abnormal posture (09/10/22) Weakness (09/10/22) Visit Care Team Role Provider Type APPLE Mirza Attending Provider Non-Staff Family Provider Primary Care Provider Referring Provider Specialty: Nursing Address: [facility] [address], [address], [place], [address] Email: Plan Of Care PT-OP-T Assessment and Plan Start: 09/04/22 18:01 Freq: Status: Active Protocol: Document 09/10/22 08:09 [facility] (Rec: 09/10/22 09:51 [facility] [id number]) Physical Therapy Assessment Rehab Potential Rehabilitation Potential Good Evaluation Complexity Number of Personal Factors/Comorbidities 3 or More Number of Body Systems Impaired 4 or More Clinical Presentation at Evaluation Evolving Impairments Impairments Activity Tolerance,Functional Activities,Functional Mobility ,Pain,Posture,ROM,Soft Tissue Mobility,Strength Goals ROM Assisted Goal (LTG) Pt will have full RUE ROM w/o inc pain to allow pt to do typical ADLs like reaching to pull covers, reaching overhead etc LTG Duration 11/19/22 quick dash Impairment 40.9 Short Term Goal (STG) Pt will score no higher than 28 on quick dash to show improved UE function. STG Duration 10/19/22 Footwear Sales Coordinator Goal (LTG) Pt will score no higher than 8 on quick dash to show improved UE function. LTG Duration 11/19/22 strength Short Term Goal (STG) Pt will be indep w/HEP for ROM , strength and stability. STG Duration 10/19 Footwear Sales Coordinator Goal (LTG) Pt will score at least 4+/5 on BUE MMT and at least 3/5 on EFT to show improved stability and strength to allow pt to do her typical daily tasks w/o inc pain. LTG Duration 11/19/22 Assessment Summary Assessment Pt presents w/c/o pain that started in R elbow and has progressed to going down post forearm into post fingers 3-5 and up to shoulder. Pt now has R shoulder pain in ant/sup shoulder with overhead motions and is positive for impingement testing. She also was positive w/thoracic outlet testing w/Costoclavicular test along w/tension B w/ median, radial and ulnar nerves. She likely has nerve impingment that started this issue and progressed further to also have impingment syndrome based on movement mechanics and posture. Pt would benefit from skilled PT to address this in order to improve pt function. Physical Therapy Plan Frequency and Duration Frequency of Treatment 2x/wk5wk;1x/wk 5 wk Duration of treatment (weeks) 10 Plan of Care Start Date 09/10/22 Plan of Care End Date 11/19/22 Therapeutic Interventions Therapeutic Interventions Home Exercise Program,Joint Mobilizations,Manual Therapy, Neuromuscular Re-education, Patient/Caregiver Education, Self-Care/Home Management,Soft Tissue Mobilization,Taping, Therapeutic Activities, Therapeutic Exercises Modalities Cold Pack/Ice Massage,Electric Stimulation,Hot Packs, Infrared Therapy,Iontophoresis ,Traction- Mechanical, Ultrasound Next Visit Focus/Plan Next Note Type Treatment Note Next Visit Plan axial elongation training, foam roll stretch, wall posture, B shoulder ext, STM to pec, scalenes, SCM, work on rib mobility, manubrium and upper thoracic vertebrae Plan of Care Dates Plan of Care Start Date 09/10/22 Plan of Care End Date 11/19/22 Electronically Signed by: Rosalee Barrera, PT 09/10/22 7009 If you are in agreement with this Plan of Care, please return a signed and dated copy. I have reviewed this Plan of Care and certify that the skilled therapy services above are required to meet the patient?s needs. Physician Signature Date Printed Name and Credentials Clinical Instructor Signature Printed Name and Credentials
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
--- NOTE | 2022-10-29 13:51 | PT.OPPOC ---
Physical, Occupational & Speech Therapy At [facility] Current Diagnoses Pain in right shoulder (10/29/22) Abnormal posture (10/29/22) Weakness (10/29/22) Visit Care Team Role Provider Type APPLE Mirza Attending Provider Non-Staff Family Provider Primary Care Provider Referring Provider Specialty: Nursing Address: [facility] [address]asha Wong, [address], [place], [address] Email: Plan Of Care PT-OP-T Assessment and Plan Start: 09/04/22 18:01 Freq: Status: Active Protocol: Document 10/29/22 12:46 [facility] (Rec: 10/29/22 12:55 [facility] [id number]) Physical Therapy Assessment Goals ROM Senior Clinical Consultant Goal (LTG) Pt will have full RUE ROM w/o inc pain to allow pt to do typical ADLs like reaching to pull covers, reaching overhead etc 10/29-improved ROM w/overhead but still limited LTG Duration 12/23 quick dash Impairment 40.9 Short Term Goal (STG) Pt will score no higher than 28 on quick dash to show improved UE function. 10/29-34.1 STG Duration 11/29 [facility] Goal (LTG) Pt will score no higher than 8 on quick dash to show improved UE function. LTG Duration 12/23 strength Short Term Goal (STG) Pt will be indep w/HEP for ROM , strength and stability. STG Duration achieved-advancing as able [facility] Goal (LTG) Pt will score at least 4+/5 on BUE MMT and at least 3/5 on EFT to show improved stability and strength to allow pt to do her typical daily tasks w/o inc pain. 10/29-much improved strength overall LTG Duration 01/07 Assessment Summary Assessment Pt is making progress w/PT slowly but has been limited wother pain. Unablet o start treatment on back d/t GI said to wait until inflamation of liver dec as pt had pain w /trying 1 core exercise w/PT. She is working on HEP and it is being progressed as needed. Her strength is much improved and ROM gradually improving. Her R ext imrpoved by 10 deg w /manual today. Cont PT to dec pain and improve pt mobility. Physical Therapy Plan Frequency and Duration Frequency of Treatment 1-2x/wk Duration of treatment (weeks) 10 Plan of Care Start Date 10/29/22 Plan of Care End Date 01/07/23 Therapeutic Interventions Therapeutic Interventions Home Exercise Program,Joint Mobilizations,Manual Therapy, Neuromuscular Re-education, Patient/Caregiver Education, Self-Care/Home Management,Soft Tissue Mobilization,Taping, Therapeutic Activities, Therapeutic Exercises Modalities Cold Pack/Ice Massage,Electric Stimulation,Hot Packs, Infrared Therapy,Iontophoresis ,Traction- Mechanical, Ultrasound Next Visit Focus/Plan Next Note Type Treatment Note Next Visit Plan cont to work on pt ability to get abd, ext w/ER and full flex &IR Plan of Care Dates Plan of Care Start Date 10/29/22 Plan of Care End Date 01/07/23 Electronically Signed by: Rosalee Barrera, PT 10/29/22 3300 If you are in agreement with this Plan of Care, please return a signed and dated copy. I have reviewed this Plan of Care and certify that the skilled therapy services above are required to meet the patient?s needs. Physician Signature Date Printed Name and Credentials Clinical Instructor Signature Printed Name and Credentials
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
== END 2022-11-20 15:56 | disposition home or self-care (01) ==
LOC: PHYS 09:00
PROVIDERS: Family Provider Nurse Practitioner; PCP Nurse Practitioner; Referring Provider Nurse Practitioner; Visit Provider Nurse Practitioner
DX: M25.511 Pain in right shoulder (principal); R53.1 Weakness; R29.3 Abnormal posture
CPT/HCPCS: 97110; 97140; 97162; 97535

== ENCOUNTER → 2022-11-26 08:26 | Outpatient (CLI) | payer OTHER, SELFPAY ==
--- NOTE | 2022-11-26 | DI.CT.S_ITS ---
PROCEDURE: CT SINUS SCREEN WO CON INDICATIONS: Acute sinusitis, unspecified TECHNIQUE: Noncontrast 3.0 mm axial images acquired from the frontal sinuses to the mid-sella, with coronal and sagittal reformats. For radiation dose reduction, the following was used: automated exposure control, adjustment of mA and/or kV according to patient size. COMPARISON: [facility], CT, CT SINUS SCREEN WO CON, 09/12/2022, 15:46. FINDINGS: Image quality: Excellent. Maxillary Sinuses: Moderate polypoidal mucosal filling defect of the left maxillary sinus and smaller polypoidal filling defect of the right maxillary sinus. No bony expansion, remodeling or sclerosis. Ethmoid Air Cells: No bony remodeling or destruction. Sinuses are clear. Sphenoid Sinuses: No bony remodeling or destruction. Sinuses are clear. Frontal Sinuses: No bony remodeling or destruction. Sinuses are clear. Ostiomeatal Complexes: Ostiomeatal complexes are patent. No Red cells. Miscellaneous: Visualized intra-orbital contents are normal. No jenn bullosa or paradoxical turbinate curvature. No nasal septal deviation. Bilateral Red cells. Questionable right Onodi cells. Keros type 2. IMPRESSION: Polypoidal mucosal thickening of the left greater than right maxillary sinuses. Suspect bilateral Red cells and right Onodi cells. Dictated by: Luan Romero M.D. on 11/26/2022 at 9:42 Approved by: Luan Romero M.D. on 11/26/2022 at 9:48
== END ==
PROVIDERS: Family Provider Nurse Practitioner; PCP Nurse Practitioner; Referring Provider Otolaryngology; Visit Provider Otolaryngology
DX: J01.90 Acute sinusitis, unspecified (principal); J32.0 Chronic maxillary sinusitis; R51.9 Headache, unspecified
CPT/HCPCS: 70486

== ENCOUNTER → 2023-02-12 17:04 | Outpatient (CLI) | payer OTHER, SELFPAY ==
[2023-02-12 17:32] LABS: Alanine Aminotransferase 16 IU/L (<35); Albumin 4.5 g/dL (3.5-5.0); Albumin Globulin Ratio 1.4 (1.0-2.8); Alkaline Phosphatase 127 U/L (38-126); Aspartate Aminotransferase 20 IU/L (14-36); Bilirubin Total 0.9 mg/dL (0.2-1.3); Bilirubin Unconjugated 0.8 mg/dL (0.0-1.1); Globulin 3.3 g/dL (1.7-4.1); HEMOLYSIS < 15 (0-50); Total Protein 7.8 g/dL (6.3-8.2)
== END ==
PROVIDERS: Family Provider Nurse Practitioner; PCP Nurse Practitioner; Referring Provider Internal Medicine; Visit Provider Internal Medicine
DX: K74.3 Primary biliary cirrhosis (principal)
CPT/HCPCS: 36415; 80076

== ENCOUNTER 2023-03-19 13:18 | Day surgery (SDC) | payer OTHER, SELFPAY ==
[2023-03-12 09:48] VITALS: BMI 40.7
[2023-03-19] MEDS: LACTATED RINGERS 1,000 ML 42 ML IV (13:38)
[2023-03-19 13:54] VITALS: BP 131/78; PULSE 72; RESP 16; TEMP 36.8; O2SAT 100; BMI 40.4
[2023-03-19] MEDS: OXYMETAZOLINE NASAL SPRAY 30 ML 2 SPRAYS NASAL (14:20)
--- NOTE | 2023-03-19 15:13 | PM.PREOP ---
Pre-operative Note Interval Note History & Physical reviewed/Exam performed by Physician: Yes Changes to H&P: No
--- NOTE | 2023-03-19 15:13 | PM.HP.1 ---
History of Present Illness History of Present Illness Date Patient Seen: 03/19/23 Chief complaint: Left Endoscopic Sinus Surgery Narrative: 37-year-old female last seen in clinic 01/06/2023 presents for left endoscopic maxillary antrostomy with tissue removal as well as anterior ethmoidectomy for a large presumably symptomatic cyst of the left maxillary sinus. Symptoms of left pressure and pain persist approximately every 10 days without other known contributing factors. She was treated for pneumonia evidently after last clinic visit, received medical clearance 02/18. She is unable to take Tylenol due to liver disease, declined postoperative narcotics, therefore will use ibuprofen exclusively. She says her asthma is under control. No recent cough cold or fever. COUNT INCLUDES THE [facility] Medical History History of anxiety History of asthma History of depression History of gastroesophageal reflux (GERD) History of hearing loss Surgical History History of cholecystectomy (~11/02/17) History of colonoscopy (~2022) History of esophagogastroduodenoscopy (EGD) (11/18/19) History of foot surgery History of liver biopsy History of surgery (~2015) Social History marital status: household members: significant other housing: house Smoking Status: Never smoker alcohol intake: never Meds Home Medications and Allergies Home Medications Medication Instructions Recorded Confirmed Type albuterol sulfate 90 mcg/actuation 2 puff inhalation QID PRN sob 03/12/23 03/19/23 History aerosol inhaler bupropion HCl 150 mg tablet,12 hr 150 mg PO DAILY 03/12/23 03/19/23 History sustained-release hyoscyamine sulfate 0.125 mg tablet 0.125 mg PO Q6H PRN cramps 03/12/23 03/19/23 History levonorgestrel 21 mcg/24 hours (8 1 mcg intrauterine 3XD 03/12/23 03/19/23 History yrs) 52 mg intrauterine device (Mirena) topiramate 50 mg tablet 50 mg PO BID 03/12/23 03/19/23 History ursodiol 500 mg tablet 500 mg PO TID 03/12/23 03/19/23 History Allergies Allergy/AdvReac Type Severity Reaction Status Date / Time Sulfa (Sulfonamide Allergy Intermediate Verified 01/03/22 16:30 Antibiotics) [SULFA (SULFONAMIDE ANTIBIOTICS)] cefaclor [From CECLOR] Allergy Unknown Verified 01/03/22 16:30 latex [LATEX] Allergy Unknown Hives Verified 03/19/23 13:44 oxycodone [OXYCODONE] Allergy Unknown Anxiety Verified 03/19/23 13:44 Penicillins [PENICILLINS] Allergy Unknown Verified 01/03/22 16:30 fentanyl Allergy Palpitation Verified 03/12/23 10:10 s Review of Systems Review of Systems Narrative: Negative except as listed in the HPI Exam Vital Signs (past 8 hours): - 03/19/23 13:54 Temperature 98.2 F Pulse Rate 72 Respiratory Rate 16 Blood Pressure 131/78 Pulse Oximetry 100 Oxygen Delivery Method Room Air Oxygen Delivery Method Room Air Narrative Exam Narrative: Well-developed well-nourished, heart regular rate and rhythm without murmur, lungs clear to auscultation bilaterally Assessment & Plan Assessment & Plan narrative: Assessment: Left chronic maxillary sinusitis with maxillary sinus cyst, facial pain, postnasal drip Plan: Following discussion of the material risks benefits complications and alternatives, the patient elected to proceed.
--- NOTE | 2023-03-19 15:15 | PM.OP.1 ---
Operative Date/Time/Diagnoses Date of procedure: 03/19/23 Time of procedure: 16:34 Pre-op diagnosis: Left maxillary chronic sinusitis with cyst, facial pain Post-op diagnosis: same Procedure & Clinicians Procedure: 1. Left endoscopic maxillary antrostomy with tissue removal 2. Left endoscopic anterior ethmoidectomy Same procedure as scheduled: Yes Indications: 37 Year old with the above diagnoses incompletely managed with medical therapy presents for the above procedure. Following discussion of the material risks benefits complications and alternatives, the patient elected to proceed. Surgeon: Abraham Barrera Click Yes if Unassisted: Yes Anesthesia Type: General and Local Operative Notes Findings: Large cyst left maxillary sinus marsupialized and evacuated yellow serous fluid, photos taken. No inflammation. Estimated Blood Loss (mL): 25 Procedure in detail: Following identification and confirmation of consent as well as preoperative Afrin nasal spray, the patient was brought to the operating room suite and placed in the supine position. General endotracheal anesthesia was administered. Following sterile prep and drape, under endoscopic guidance the posterior and anterior superior insertion of the left middle turbinate was then infiltrated with lidocaine 2% with 1 100,000 epinephrine via spinal needle. The middle meatus was filled with 1/4 inch cotton pledgets saturated with epinephrine 1 100,000 epinephrine for several minutes and used intermittently for hemostasis throughout the case. The middle turbinate was partially resected to improve access to the middle meatus. It was then slightly medialized and the uncinate process was identified with uncinectomy performed via the backbiting forceps and the microdebrider. The natural os of the maxillary sinus was identified and enlarged posteriorly and inferiorly with forceps and the microdebrider. Anterior ethmoidectomy was performed by removing the ethmoid bulla with the microdebrider. Utilizing angled endoscopes and the curved microdebrider and curved forceps, the cyst was identified, evacuated and marsupialized, with the sinus irrigated further. The procedure completed, sponge and needle counts were correct and the patient was extubated in the operating room and taken to recovery room in stable condition without known complication. Complications: none Post-operative Condition: stable Disposition: same day surgery Plan for aftercare: Irrigations TID beginning in AM, IBuprofen for pain control. F/u 1 week as scheduled.
--- NOTE | 2023-03-19 16:00 | SUR.OPER ---
Supine on padded OR bed, head on pillow, arms padded and tucked at sides, legs uncrossed, safety belt at thigh, tape over blanket over lower legs .
[2023-03-19] MEDS: EPINEPHrine 1 MG/ML 3 MG TOP (16:11)
[2023-03-19 16:40] VITALS: BP 137/71; PULSE 83; RESP 12; TEMP 36.7; O2SAT 97
[2023-03-19 16:45] VITALS: BP 136/75; PULSE 78; RESP 12; O2SAT 93
[2023-03-19 16:53] VITALS: BP 131/88; PULSE 74; RESP 14; O2SAT 96
[2023-03-19 17:00] VITALS: BP 141/82; PULSE 72; RESP 12; O2SAT 97
--- NOTE | 2023-03-19 18:25 | PM.HP.1 ---
History of Present Illness History of Present Illness Date Patient Seen: 03/19/23 Time Patient Seen: 18:25 Chief complaint: Bleeding after sinus surgery Narrative: 37-year-old female completed left endoscopic maxillary antrostomy with tissue removal along with anterior ethmoidectomy this afternoon, surgery was uneventful with minimal blood loss and when she entered the car she began bleeding profusely. She was returned to the hospital and the decision was made to return to the operating room for endoscopic control of epistaxis. She drank a small amount of water postoperatively, otherwise NPO. Bleeding was controlled and stopped with Afrin in the preoperative area. [facility] Medical History History of anxiety History of asthma History of depression History of gastroesophageal reflux (GERD) History of hearing loss Surgical History History of cholecystectomy (~11/02/17) History of colonoscopy (~2022) History of esophagogastroduodenoscopy (EGD) (11/18/19) History of foot surgery History of liver biopsy History of surgery (~2015) Social History marital status: household members: significant other housing: house Smoking Status: Never smoker alcohol intake: never Meds Home Medications and Allergies Home Medications Medication Instructions Recorded Confirmed Type albuterol sulfate 90 mcg/actuation 2 puff inhalation QID PRN sob 03/12/23 03/19/23 History aerosol inhaler bupropion HCl 150 mg tablet,12 hr 150 mg PO DAILY 03/12/23 03/19/23 History sustained-release hyoscyamine sulfate 0.125 mg tablet 0.125 mg PO Q6H PRN cramps 03/12/23 03/19/23 History levonorgestrel 21 mcg/24 hours (8 1 mcg intrauterine 3XD 03/12/23 03/19/23 History yrs) 52 mg intrauterine device (Mirena) topiramate 50 mg tablet 50 mg PO BID 03/12/23 03/19/23 History ursodiol 500 mg tablet 500 mg PO TID 03/12/23 03/19/23 History Allergies Allergy/AdvReac Type Severity Reaction Status Date / Time Sulfa (Sulfonamide Allergy Intermediate Verified 01/03/22 16:30 Antibiotics) [SULFA (SULFONAMIDE ANTIBIOTICS)] cefaclor [From CECLOR] Allergy Unknown Verified 01/03/22 16:30 latex [LATEX] Allergy Unknown Hives Verified 03/19/23 13:44 oxycodone [OXYCODONE] Allergy Unknown Anxiety Verified 03/19/23 13:44 Penicillins [PENICILLINS] Allergy Unknown Verified 01/03/22 16:30 fentanyl Allergy Palpitation Verified 03/12/23 10:10 s Review of Systems Review of Systems Narrative: Negative except as listed in the HPI Exam Vital Signs (past 8 hours): - 03/19/23 13:54 03/19/23 16:40 03/19/23 16:45 Temperature 98.2 F 98.1 F Pulse Rate 72 83 78 Respiratory Rate 16 12 12 Blood Pressure 131/78 137/71 136/75 Pulse Oximetry 100 97 93 Oxygen Delivery Method Room Air Room Air Room Air 03/19/23 16:53 03/19/23 17:00 Temperature Pulse Rate 74 72 Respiratory Rate 14 12 Blood Pressure 131/88 141/82 H Pulse Oximetry 96 97 Oxygen Delivery Method Room Air Room Air Oxygen Delivery Method Room Air Narrative Exam Narrative: Well-developed well-nourished female. She is holding pressure on her nose but no active bleeding at the time of the exam. Heart regular rate and rhythm without murmur, lungs clear to auscultation bilaterally Assessment & Plan Assessment & Plan narrative: Assessment: Bleeding status post left endoscopic sinus surgery earlier today, temporarily controlled with Afrin Plan: Following discussion of the material risks benefits complications and alternatives, I recommend return to the operating room for definitive clearing of clot, thorough exam, and cautery of any suspected bleeding areas or actively bleeding areas. The alternative would be close observation with Afrin for any bleeding but with the amount of blood, I think that would be high risk. Patient agrees with the plan.
== END 2023-03-19 17:17 | disposition home or self-care (01) ==
PROVIDERS: Family Provider Nurse Practitioner; PCP Nurse Practitioner; Referring Provider Otolaryngology; Visit Provider Otolaryngology
PROC: (CPT 31231; principal; 2023-03-19 14:30)
DX: J32.0 Chronic maxillary sinusitis (principal); J34.1 Cyst and mucocele of nose and nasal sinus; J95.831 Postprocedural hemorrhage of a respiratory system organ or structure following other procedure; R04.0 Epistaxis
CPT/HCPCS: 31267; 31254; 81025; J0171; J1100; J2405; J2704; J3010; J3470

== ENCOUNTER 2023-03-19 18:46 | Day surgery (SDC) | payer OTHER, SELFPAY ==
--- NOTE | 2023-03-19 18:31 | P.OP_ITS ---
Operative Date/Time/Diagnoses Date of procedure: 03/19/23 Time of procedure: 19:56 Pre-op diagnosis: Epistaxis following endoscopic sinus surgery Post-op diagnosis: same Procedure & Clinicians Procedure: Left Endoscopic control of epistaxis Same procedure as scheduled: Yes Indications: Patient underwent left endoscopic sinus surgery earlier today that was uneventful and minimal blood loss. Spontaneous severe left epistaxis as she was loading into the car to go home. Following discussion of the material risks benefits complications and alternatives, she agreed to head back to the operating room for ideally definitive control of epistaxis. Surgeon: Abraham Barrera Click Yes if Unassisted: Yes Anesthesia Type: General and Local Operative Notes Findings: Clotted blood filling the entire left nasal cavity including the maxillary sinus. Active bleeding from the stump of the previously surgically reduced middle turbinate, as well as any raw mucosal area from the prior surgery. Estimated Blood Loss (mL): 50 Procedure in detail: Following identification and confirmation of consent, the patient was brought to the operating room suite and placed in the supine position. General endotracheal anesthesia was administered. Following sterile prep and drape, under endoscopic guidance I suctioned the left nasal cavity until it was free of blood including irrigating with saline as needed, which required over 20min. The bleeding areas of primarily the raw surface of the residual middle turbinate, but also including all recent operative mucosa were identified and suction electrocautery on a setting of 15 was utilized for control, along with frequent application of afrin on cotton. 2% lidocaine 1 100,000 epinephrine was injected to the ant superior insertion and posterior insertion of the middle turbinate. Surgicel was placed over the cauterized areas. The nasal cavity was again irrigated with saline and hemostasis was assured, valsalva was also utilized as a test. Sponge counts were correct. She was extubated in the operating room taken to recovery room in stable condition without known complication. Complications: none Post-operative Condition: stable Disposition: same day surgery Plan for aftercare: Begin gentle nasal saline irrigations tomorrow if no further bleeding, Afrin for bleeding otherwise contact the office immediately.
[2023-03-19 18:51] VITALS: BP 136/86; PULSE 68; RESP 16; TEMP 36.6; O2SAT 97; BMI 40.4
--- NOTE | 2023-03-19 18:57 | SUR.PREOP ---
See Dr Barrera note. Pt discharged without problems and with scant nasal bleeding. Returned to ED entrance for bleeding. Pt own afrin spray used and pressure to nose and bleeding slowed and then to very small amt. Dr Barrera came to see patient. Pt back to pre-op for surgery. Pt remained alert, oriented and VS WNL throughout.
[2023-03-19] MEDS: LIDOCAINE 2% W/EPI 3 ML, BUPIVACAINE 0.5% (PF) 2 ML, HYALURONIDASE 150 UNIT INJ (19:15)
--- NOTE | 2023-03-19 19:18 | SUR.OPER ---
Supine on padded OR bed, head on pillow, arms padded and tucked at sides, legs uncrossed, safety belt at thigh, tape over blanket over lower legs .
[2023-03-19 20:03] VITALS: BP 125/73; PULSE 99; RESP 14; TEMP 36.3; O2SAT 94
[2023-03-19 20:08] VITALS: BP 132/82; PULSE 97; RESP 11; O2SAT 95
[2023-03-19 20:13] VITALS: BP 140/77; PULSE 93; RESP 11; O2SAT 99
[2023-03-19] MEDS: LACTATED RINGERS 1,000 ML 42 ML IV (20:14)
[2023-03-19] MEDS: ONDANSETRON 4 MG/2 ML INJ IV (20:15)
[2023-03-19 20:20] VITALS: BP 133/84; PULSE 82; RESP 12; O2SAT 98
== END 2023-03-19 20:43 | disposition home or self-care (01) ==
PROVIDERS: Family Provider Nurse Practitioner; PCP Nurse Practitioner; Referring Provider Otolaryngology; Visit Provider Otolaryngology
CPT/HCPCS: J2405; J3470

== ENCOUNTER → 2023-03-26 14:57 | Outpatient (CLI) | payer OTHER, SELFPAY | PROVIDERS: Family Provider Nurse Practitioner; PCP Nurse Practitioner; Referring Provider Family Medicine; Visit Provider Family Medicine | DX: Z23 Encounter for immunization (principal) | CPT/HCPCS: 90471; 90686 ==

== ENCOUNTER → 2023-06-09 10:35 | Outpatient (CLI) | payer OTHER, SELFPAY ==
[2023-06-09 11:25] LABS: COVID-19 CEPHEID 4-PLEX PCR Negative (Negative); Influenza A - CEPHEID Flu A NEGATIVE (NEGATIVE); Influenza B - CEPHEID Flu B NEGATIVE (NEGATIVE); Respiratory Syncytial Virus Negative (Negative)
== END ==
PROVIDERS: Family Provider Nurse Practitioner; PCP Nurse Practitioner; Visit Provider Family Medicine
DX: R53.83 Other fatigue (principal); R05.9 Cough, unspecified; J34.89 Other specified disorders of nose and nasal sinuses; Z20.822 Contact with and (suspected) exposure to COVID-19
CPT/HCPCS: 0241U

== ENCOUNTER → 2023-07-07 07:15 | Outpatient (CLI) | payer OTHER, SELFPAY ==
--- NOTE | 2023-07-07 | DI.RAD.S_ITS ---
PROCEDURE: XR HAND LT MIN 3V INDICATIONS: BILATERAL PAIN TECHNIQUE: 3 views of the hand(s) acquired. COMPARISON: None. FINDINGS: Bones: No fractures or dislocations. Carpal bones are normally aligned. No suspicious bony lesions. Soft tissues: No suspicious soft tissue calcifications. IMPRESSION: No acute bony abnormality. Dictated by: Kathy Pacheco M.D. on 07/07/2023 at 10:10 Approved by: Kathy Pacheco M.D. on 07/07/2023 at 10:11
--- NOTE | 2023-07-07 | DI.RAD.S_ITS ---
PROCEDURE: XR HAND RT MIN 3V INDICATIONS: BILATERAL PAIN TECHNIQUE: 3 views of the hand(s) acquired. COMPARISON: None. FINDINGS: Bones: No fractures or dislocations. Carpal bones are normally aligned. No suspicious bony lesions. Soft tissues: No suspicious soft tissue calcifications. IMPRESSION: No acute bony abnormality. Dictated by: Kathy Pacheco M.D. on 07/07/2023 at 10:11 Approved by: Kathy Pacheco M.D. on 07/07/2023 at 10:11
== END ==
LOC: RAD 07:19
PROVIDERS: Family Provider Nurse Practitioner; PCP Nurse Practitioner; Referring Provider Internal Medicine Rheumatology; Visit Provider Internal Medicine Rheumatology
DX: M79.641 Pain in right hand (principal); M79.642 Pain in left hand
CPT/HCPCS: 73130

== ENCOUNTER 2023-08-12 07:30 | Outpatient (RCR) | payer OTHER, SELFPAY ==
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
--- NOTE | 2022-12-17 10:18 | PT-OP ANOTE ---
Pt called re: no show and she had her appt written down as 930. Pt rescheduled to 12 pm w/MEDICAL HOUSEKEEPER today
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
--- NOTE | 2023-04-15 13:35 | PT.OPPOC ---
Physical, Occupational & Speech Therapy At [facility] Current Diagnoses Pain in right shoulder (04/15/23) Dorsalgia, unspecified (04/15/23) Difficulty in walking, not elsewhere classified (04/15/23) Abnormal posture (04/15/23) Weakness (04/15/23) Visit Care Team Role Provider Type APPLE Mirza Attending Provider Non-Staff Family Provider Primary Care Provider Referring Provider Specialty: Nursing Address: [facility] Shasha Wong, [address], [place], [address] Email: Plan Of Care PT-OP-T Assessment and Plan Start: 11/19/22 12:46 Freq: Status: Active Protocol: Document 04/15/23 07:31 [facility] (Rec: 04/15/23 13:34 [facility] [id number]) Physical Therapy Assessment Goals pain Assisted Goal (LTG) Pt will be able to clean house w/o inc shoulder or back pain . 02/11-flared up recently w/move LTG Duration achieved w/using complaint clerk activity Short Term Goal (STG) Pt will be able to do uphill and down hill walks/hikes w/o inc pain in back greater than 2/10 02/11-not tried d/t move besides small walks w/slight incline (about 10 min) no pain 04/15- 4/10 tightness and is limited to 2 miles. Has not tried hills STG Duration 03/22 Director Family Goal (LTG) Pt will be able to go for walks w/dog w/o reporting inc pain. 02/11-not tried d/t move 04/15-hasn't managed dog yet LTG Duration 11 strength Short Term Goal (STG) Pt will be indep w/HEP STG Duration achieved advancing as able Assisted Goal (LTG) Pt will score at least 4/5 on EFT and 3/5 on LPM in all planes along w/at least 5/5 on BLE MMT and RUE MMT w/o pain to show inc strength and stability to allow pt to do her typical activities w/o pain. 02/11-improved despite inc pain w/move 04/15-some improved and some dec LTG Duration 06/22/23 CARLITOS Impairment 17/50 Short Term Goal (STG) Pt will show imrpoved CARLITOS to no greater than 12/50 to show improved functional ability. 02/11-30% STG Duration achieved Assisted Goal (LTG) Pt will show imrpoved CARLITOS to no greater than 5/50 to show improved functional ability. 04/15- LTG Duration 06/22/23 Assessment Summary Assessment Pt overall improving and is noting funcitonal improvement w/PT. She has had mult things that have distrupted PT including moving mostly alone that inc pain and a recent sinus surgery w/complications taht rquired her to cancel a bit of PT and stop her strengthening. SHe is returning back to walking and exercising but her LB does still limit her w/this. Cont PT to improve mobility, dec pain and improve strength. Physical Therapy Plan Frequency and Duration Frequency of Treatment 1x/Week Duration of treatment (weeks) 10 Plan of Care Start Date 04/15/23 Plan of Care End Date 06/24/23 Therapeutic Interventions Therapeutic Interventions Balance Training,Gait Training ,Home Exercise Program,Joint Mobilizations,Manual Therapy, Neuromuscular Re-education, Patient/Caregiver Education, Self-Care/Home Management,Soft Tissue Mobilization,Taping, Therapeutic Activities, Therapeutic Exercises Modalities Cold Pack/Ice Massage,Electric Stimulation,Hot Packs, Iontophoresis,Traction- Mechanical,Ultrasound Next Visit Focus/Plan Next Note Type Treatment Note Next Visit Plan s/l abd shoulder; prone Habd & scaption; PNF pelvis to work on core facilitation and mobilizaiton through it Plan of Care Dates Plan of Care Start Date 04/15/23 Plan of Care End Date 06/24/23 Electronically Signed by: Rosalee Barrera, PT 04/15/23 [id number] If you are in agreement with this Plan of Care, please return a signed and dated copy. I have reviewed this Plan of Care and certify that the skilled therapy services above are required to meet the patient?s needs. Physician Signature Date Printed Name and Credentials Clinical Instructor Signature Printed Name and Credentials
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
--- NOTE | 2023-06-10 18:22 | PT.OPPOC ---
Physical, Occupational & Speech Therapy At [facility] Current Diagnoses Pain in right shoulder (06/10/23) Dorsalgia, unspecified (06/10/23) Difficulty in walking, not elsewhere classified (06/10/23) Abnormal posture (06/10/23) Weakness (06/10/23) Visit Care Team Role Provider Type APPLE Mirza Attending Provider Non-Staff Family Provider Primary Care Provider Referring Provider Specialty: Nursing Address: [facility] [address], [address], [place], [address] Email: Plan Of Care PT-OP-T Assessment and Plan Start: 11/19/22 12:46 Freq: Status: Active Protocol: Document 06/10/23 13:06 [facility] (Rec: 06/10/23 18:22 [facility] [id number]) Physical Therapy Assessment Goals pain [facility] Goal (LTG) Pt will be able to clean house w/o inc shoulder or back pain . 02/11-flared up recently w/move LTG Duration achieved w/using fire claims adjuster activity Short Term Goal (STG) Pt will be able to do uphill and down hill walks/hikes w/o inc pain in back greater than 2/10 02/11-not tried d/t move besides small walks w/slight incline (about 10 min) no pain 04/15- 4/10 tightness and is limited to 2 miles. Has not tried hills 06/10-has not recently STG Duration 07/06/23 [facility] Goal (LTG) Pt will be able to go for walks w/dog w/o reporting inc pain. 02/11-not tried d/t move 04/15-hasn't managed dog yet 06/10-has not been recently d/ t studying LTG Duration 08/05 strength Short Term Goal (STG) Pt will be indep w/HEP STG Duration achieved advancing as able Candy Attendant Goal (LTG) Pt will score at least 4/5 on EFT and 3/5 on LPM in all planes along w/at least 5/5 on BLE MMT and RUE MMT w/o pain to show inc strength and stability to allow pt to do her typical activities w/o pain. 8/23-improved despite inc pain w/move 04/15-some improved and some dec 06/10-LPM 4/5 except AP L; LE strength improved LTG Duration 08/05 CARLITOS Impairment Short Term Goal (STG) Pt will show imrpoved CARLITOS to no greater than 12/50 to show improved functional ability. 02/11-30% STG Duration achieved [facility] Goal (LTG) Pt will show imrpoved CARLITOS to no greater than /50 to show improved functional ability. 04/15- 06/10- LTG Duration 08/05 Assessment Summary Assessment Pt has not been walking d/t busy w/other activities including studying for licensing exam but has noted no major shoudler pain recently and notes back has been okay along w/hips except inc clicking. Pt does still show some dec core stability w /L AP LPM and some dec hip strength L>R noted on testing today, but overall improved. COnt PT through the month to works towards indep HEP and dec back/hip pain to allow pt to improve mobility. Physical Therapy Plan Frequency and Duration Frequency of Treatment 1x/Week Duration of treatment (weeks) 8 Plan of Care Start Date 06/10/23 Plan of Care End Date 08/05/23 Therapeutic Interventions Therapeutic Interventions Balance Training,Gait Training ,Home Exercise Program,Joint Mobilizations,Manual Therapy, Neuromuscular Re-education, Patient/Caregiver Education, Self-Care/Home Management,Soft Tissue Mobilization,Taping, Therapeutic Activities, Therapeutic Exercises Modalities Cold Pack/Ice Massage,Electric Stimulation,Hot Packs, Iontophoresis,Traction- Mechanical,Ultrasound Next Visit Focus/Plan Next Note Type Treatment Note Next Visit Plan work on hip stability in SL positions, PNF for pelvis and scap and combined patterns. Plan of Care Dates Plan of Care Start Date 06/10/23 Plan of Care End Date 08/05/23 Electronically Signed by: Rosalee Barrera, PT 06/10/23 [id number] If you are in agreement with this Plan of Care, please return a signed and dated copy. I have reviewed this Plan of Care and certify that the skilled therapy services above are required to meet the patient?s needs. Physician Signature Date Printed Name and Credentials Clinical Instructor Signature Printed Name and Credentials
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
--- NOTE | 2023-07-22 07:51 | PT-OP ANOTE ---
Patient canceled appt scheduled for 07/22 under 24 hours. Marked as a No Show per current instructions. Patient is normally compliant makes all of her appointments. The patient canceled for Appt reminder system. Front will contact patient to reschedule.
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
--- NOTE | 2023-07-29 11:42 | PT.OPPOC ---
Physical, Occupational & Speech Therapy At [facility] Current Diagnoses Pain in right shoulder (07/29/23) Dorsalgia, unspecified (07/29/23) Difficulty in walking, not elsewhere classified (07/29/23) Abnormal posture (07/29/23) Weakness (07/29/23) Visit Care Team Role Provider Type APPLE Mirza Attending Provider Non-Staff Family Provider Primary Care Provider Referring Provider Specialty: Nursing Address: [facility] [address], [address], [place], [address] Email: Plan Of Care PT-OP-T Assessment and Plan Start: 11/19/22 12:46 Freq: Status: Active Protocol: Document 07/29/23 10:38 [facility] (Rec: 07/29/23 10:41 [facility] [id number]) Physical Therapy Assessment Goals pain Half-Way Goal (LTG) Pt will be able to clean house w/o inc shoulder or back pain . 02/11-flared up recently w/move LTG Duration achieved w/using multimedia educational specialist activity Short Term Goal (STG) Pt will be able to do uphill and down hill walks/hikes w/o inc pain in back greater than 2/10 02/11-not tried d/t move besides small walks w/slight incline (about 10 min) no pain 04/15- 4/10 tightness and is limited to 2 miles. Has not tried hills 06/10-has not recently 07/29-treadmill w/2 incline and is feeling better STG Duration achieved 07/29 Half-Way Goal (LTG) Pt will be able to go for walks w/dog w/o reporting inc pain. 02/11-not tried d/t move 04/15-hasn't managed dog yet 06/10-has not been recently d/ t studying 07/29-hasn't had time w/working inc schedule hours and 6 days LTG Duration 09/08 strength Short Term Goal (STG) Pt will be indep w/HEP STG Duration achieved advancing as able Can Solderer Goal (LTG) Pt will score at least 4/5 on EFT and 3/5 on LPM in all planes along w/at least 5/5 on BLE MMT and RUE MMT w/o pain to show inc strength and stability to allow pt to do her typical activities w/o pain. 02/11-improved despite inc pain w/move 04/15-some improved and some dec 06/10-LPM 4/5 except AP L; LE strength improved 07/29-met except some L hip limit LTG Duration 09/08 CARLITOS Impairment Short Term Goal (STG) Pt will show imrpoved CARLITOS to no greater than to show improved functional ability. 02/11-30% STG Duration achieved Can Solderer Goal (LTG) Pt will show imrpoved CARLITOS to no greater than to show improved functional ability. 04/15- 06/10- 07/29-n/t LTG Duration 08/05 Assessment Summary Assessment Pt has made excellent progress w/therapy and is noting much less shoulder pain and less hip pain. Had arecent flare up but likely d/t inc stress and inc work at home and at work w/inc hours. She has returned to gym until she got sick this weekend and is overall feeling good. Plan to work towards indep of HEP and plan to follow up in 2 weeks then do 1x/week to every other week as needed to get pt to comfortable and able to cont to do gym program indep Physical Therapy Plan Frequency and Duration Frequency of Treatment 1x/Week Duration of treatment (weeks) 6 Plan of Care Start Date 07/29/23 Plan of Care End Date 09/09/23 Therapeutic Interventions Therapeutic Interventions Balance Training,Gait Training ,Home Exercise Program,Joint Mobilizations,Manual Therapy, Neuromuscular Re-education, Patient/Caregiver Education, Self-Care/Home Management,Soft Tissue Mobilization,Taping, Therapeutic Activities, Therapeutic Exercises Modalities Cold Pack/Ice Massage,Electric Stimulation,Hot Packs, Iontophoresis,Traction- Mechanical,Ultrasound Next Visit Focus/Plan Next Note Type Treatment Note Next Visit Plan work on hip stability in SL positions, PNF for pelvis and scap and combined patterns. Plan of Care Dates Plan of Care Start Date 07/29/23 Plan of Care End Date 09/09/23 Electronically Signed by: Rosalee Barrera, PT 07/29/23 2724 If you are in agreement with this Plan of Care, please return a signed and dated copy. I have reviewed this Plan of Care and certify that the skilled therapy services above are required to meet the patient?s needs. Physician Signature Date Printed Name and Credentials Clinical Instructor Signature Printed Name and Credentials
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
== END 2023-08-18 10:04 | disposition home or self-care (01) ==
LOC: PHYS 07:30
PROVIDERS: Family Provider Nurse Practitioner; PCP Nurse Practitioner; Referring Provider Nurse Practitioner; Visit Provider Nurse Practitioner
DX: M54.9 Dorsalgia, unspecified (principal); M25.511 Pain in right shoulder; R53.1 Weakness; R29.3 Abnormal posture; R26.2 Difficulty in walking, not elsewhere classified
CPT/HCPCS: 97110; 97112; 97116; 97140; 97162; 97535; 97750

== ENCOUNTER 2024-02-01 17:22 | Emergency (ER) | payer OTHER, SELFPAY ==
[2024-02-01] VITALS (14 sets, daily range): BP systolic 126–181; BP diastolic 61–107; PULSE 68–89; RESP 14–18; TEMP 36.8–36.9; O2SAT 92–99; BMI 42.3
[2024-02-01 18:11] LABS: Pregnancy Test Urine Negative (Negative)
[2024-02-01 18:18] LABS: Bacteria Urine None Seen; Culture Indicated Urine Cult Not Indicated; RBC Urine 1-5/HPF (0-5/HPF); Squamous Epithelial Cell Urine None Seen (0-5/HPF); Urine Volume 10mL (spun); WBC Urine None Seen (0-5/HPF)
[2024-02-01 19:20] LABS: Add Manual Diff / Slide Review NO; Basophils Absolute Auto 100 /uL (0-100); Eosinophils Absolute Auto 100 /uL (0-450); Eosinophils Percent Auto 1.6 % (2-4); Hematocrit 36.8 % (36-46); Hemoglobin 12.5 g/dL (12.0-16.0); Lymphocytes Absolute Auto 1700 /uL (1100-4500); Mean Corpuscular Hemoglobin 27.6 PG (26-34); Mean Corpuscular Volume 81.3 fL (80-100); Monocytes Absolute Auto 400 /uL (0-900); Monocytes Percent Auto 5.7 % (3-14); Neutrophils Absolute Auto 5600 /uL (1500-7000); Neutrophils Percent Auto 70.7 % (50-75); Platelet Count 267 X10^3/uL (150-400); Red Blood Cell Count 4.53 X10^6/uL (4.0-5.2); Red Cell Distribution Width 15.4 % (11.6-14.8); White Blood Cell Count 7.9 X10^3/uL (4.5-11.0)
[2024-02-01] MEDS: ONDANSETRON 4 MG/2 ML INJ IV (19:20)
--- NOTE | 2024-02-01 19:28 | PC.NURSE ---
Pt nauseated medicated for nausea with PRN Zofran. Pt reports pain to RLQ. MD notified.
[2024-02-01 19:31] LABS: Alanine Aminotransferase 20 IU/L (<35); Albumin 4.4 g/dL (3.5-5.0); Albumin Globulin Ratio 1.6 (1.0-2.8); Alkaline Phosphatase 157 U/L (38-126); Aspartate Aminotransferase 21 IU/L (14-36); BUN Creatinine Ratio 26.4 (6-22); Bilirubin Total 0.7 mg/dL (0.2-1.3); Blood Urea Nitrogen 19 mg/dL (7-17); Calcium 9.2 mg/dL (8.4-10.2); Carbon Dioxide 20 mmol/L (22-32); Chloride 111 mmol/L (98-107); Estimated Glomerular Filt Rate > 60 mL/min (>60); Globulin 2.7 g/dL (1.7-4.1); Glucose 95 mg/dL (70-100); HEMOLYSIS < 15 (0-50); Lipase 66 U/L (23-300); Sodium 139 mmol/L (137-145); Total Protein 7.1 g/dL (6.3-8.2)
--- NOTE | 2024-02-01 19:42 | ED.ABDPAIN ---
HPI - Abdominal Pain General Chief Complaint: Abdominal Pain Stated Complaint: Rt lower quad px Time Seen by Provider: 02/01/24 19:35 Source: patient, RN notes reviewed and old records reviewed Mode of arrival: Ambulatory Limitations: no limitations History of Present Illness HPI narrative: [age] old female with history of who presents with 2 days of right lower quadrant pain. States she has had about as little bit of mild flank pain but more right lower quadrant now radiating up higher. She states it started in his lower abdomen. Denies fevers, she has had nausea no active vomiting. States bowel movements have been normal. Does state she has had irregular menses did not have regular periods for 10 or 20 years, has had 4. Like episodes of bleeding in the past 4-6 weeks. Did have her IUD out after having bleeding over the past 4 5 months. Patient states no dysuria urgency or frequency. She has a kidney stones in the past but states this feels different. She states home medications are bupropion, Topamax, doxycycline and ursodiol. States she has had prior cholecystectomy. No tobacco, alcohol or recreational drugs. Related Data Home Medications Medication Instructions Recorded Confirmed albuterol sulfate 90 mcg/actuation 2 puff inhalation QID PRN sob 03/12/23 12/14/23 aerosol inhaler hyoscyamine sulfate 0.125 mg tablet 0.125 mg PO Q6H PRN cramps 03/12/23 12/14/23 topiramate 50 mg tablet 50 mg PO BID 03/12/23 12/14/23 ursodiol 500 mg tablet 500 mg PO TID 03/12/23 12/14/23 bupropion HCl 300 mg 24 hr tablet, 300 mg PO DAILY 12/14/23 12/14/23 extended release clobetasol 0.05 % scalp solution topical 12/14/23 12/14/23 doxycycline hyclate 100 mg tablet 100 mg PO BID 12/14/23 12/14/23 ketoconazole 2 % shampoo topical 12/14/23 12/14/23 Allergies Allergy/AdvReac Type Severity Reaction Status Date / Time Sulfa (Sulfonamide Allergy Intermediate Verified 12/14/23 16:20 Antibiotics) [SULFA (SULFONAMIDE ANTIBIOTICS)] cefaclor [From CECLOR] Allergy Unknown Verified 12/14/23 16:20 latex [LATEX] Allergy Unknown Hives Verified 12/14/23 16:20 oxycodone [OXYCODONE] Allergy Unknown Anxiety Verified 12/14/23 16:20 Penicillins [PENICILLINS] Allergy Unknown Verified 12/14/23 16:20 fentanyl Allergy Palpitation Verified 12/14/23 16:20 s Review of Systems Review of Systems ROS Unobtainable: All systems reviewed & are unremarkable except as noted in HPI and below Patient History Medical History History of hearing loss History of gastroesophageal reflux (GERD) History of depression History of asthma History of anxiety Surgical History History of cholecystectomy (~11/02/17) History of esophagogastroduodenoscopy (EGD) (11/18/19) History of liver biopsy History of foot surgery History of surgery (~2015) History of colonoscopy (~2022) Social History marital status: household members: significant other housing: house Smoking Status: Never smoker alcohol intake: never Smoking Status: Never smoker alcohol intake frequency: 0-2 drinks per day Substance Use Type: does not use Exam Narrative Exam Narrative: GENERAL: Alert and oriented x three, female in moderate distress. HEENT: Head normocephalic, atraumatic, EOMI, pupils reactive, face symmetric, moist mucous membranes NECK: Supple, full range of motion CARDIOVASCULAR: Regular rate and rhythm without murmurs, rubs or gallops. RESPIRATORY: Breath sounds equal bilaterally, no wheezes rales or rhonchi. ABDOMEN: Soft, patient is tender on her right side mildly in the right upper quadrant but much more so in the right lower. Normoactive bowel sounds all 4 quadrants. No guarding or rebound, rigidity, no mass : No CVA tenderness bilaterally. EXTREMITIES: Normal range of motion, no clubbing or edema. Neurovascularly intact NEUROLOGICAL: Cranial nerves II through XII grossly intact. Moving all extremities SKIN: Warm, dry, no petechiae, no rashes or lesions. Initial Vital Signs Initial Vital Signs: Vital Signs Temperature 98.4 F 02/01/24 17:30 Pulse Rate 87 02/01/24 17:30 Respiratory Rate 16 02/01/24 17:30 Blood Pressure 181/107 H 02/01/24 17:30 Pulse Oximetry 98 02/01/24 17:30 Oxygen Delivery Method Room Air 02/01/24 17:30 Course Orders Ordered: ED Orders 02/01/24 20:33 US pelvic complete Stat Discontinued Medications Hydrocodone Bitart/Acetaminophen (Hydrocodone/Acet 5/325 Prepack) 1 bottle MISC DIRECTED ONE Stop: 02/01/24 22:20 Last Admin: 02/01/24 22:30 Dose: 1 bottle Documented By: Sodium Chloride (Normal Saline 0.9%) 1,000 mls @ 1,000 mls/hr IV BOLUS ONE Stop: 02/01/24 20:53 Last Infusion: 02/01/24 21:31 Dose: Infused Documented By: Admin: 02/01/24 20:16 Dose: 1,000 mls/hr Documented By: Acetaminophen (Ofirmev) 1,000 mg in 100 mls @ 400 mls/hr IV NOW ONE Stop: 02/01/24 21:10 Last Infusion: 02/01/24 21:57 Dose: Infused Documented By: Admin: 02/01/24 21:06 Dose: 400 mls/hr Documented By: Ketorolac Tromethamine (Ketorolac 30 Mg/Ml Vial) 15 mg IV NOW ONE Stop: 02/01/24 19:55 Last Admin: 02/01/24 20:16 Dose: 15 mg Documented By: Morphine Sulfate (Morphine 4 Mg/Ml Inj) 4 mg IV NOW ONE Stop: 02/01/24 21:49 Last Admin: 02/01/24 21:56 Dose: 4 mg Documented By: Ondansetron HCl (Ondansetron 4 Mg/2 Ml Inj) 4 mg IV NOW PRN PRN Reason: Nausea And Vomiting Last Admin: 02/01/24 19:20 Dose: 4 mg Documented By: Ondansetron HCl (Ondansetron 4 Mg Odt) 4 mg PO NOW PRN PRN Reason: Nausea And Vomiting Vital Signs Vital signs: Vital Signs - 8 hr 02/01/24 21:30 02/01/24 22:00 02/01/24 22:35 Temperature 98.2 F Pulse Rate 75 74 85 Respiratory Rate 18 Blood Pressure 133/65 131/75 Pulse Oximetry 97 98 98 Oxygen Delivery Method Room Air Room Air MDM - Abdominal Pain Lab Data 02/01/24 19:05 02/01/24 19:05 Labs: Lab Results 02/01/24 02/01/24 02/01/24 Range/Units 17:36 17:51 19:05 WBC 7.9 (4.5-11.0) X10^3/uL RBC 4.53 (4.0-5.2) X10^6/uL Hgb 12.5 (12.0-16.0) g/dL Hct 36.8 (36-46) % MCV 81.3 (80-100) fL MCH 27.6 (26-34) PG MCHC 34.0 (30-36) % RDW 15.4 H (11.6-14.8) % Plt Count 267 (150-400) X10^3/uL Neut % (Auto) 70.7 (50-75) % Lymph % (Auto) 21.0 L (25-40) % Morton % (Auto) 5.7 (3-14) % Eos % (Auto) 1.6 L (2-4) % Baso % (Auto) 1.0 (0-2) % Neut # (Auto) 5600 (5865-2664) /uL Lymph # (Auto) 1700 (0928-1816) /uL Morton # (Auto) 400 (0-900) /uL Eos # (Auto) 100 (0-450) /uL Baso # (Auto) 100 (0-100) /uL Sodium 139 (137-145) mmol/L Potassium 4.0 (3.4-5.1) mmol/L Chloride 111 H (98-107) mmol/L Carbon Dioxide 20 L (22-32) mmol/L BUN 19 H (7-17) mg/dL Creatinine 0.72 (0.52-1.04) mg/dL Estimated GFR > 60 (>60) mL/min BUN/Creatinine Ratio 26.4 H (6-22) Glucose 95 (70-100) mg/dL Calcium 9.2 (8.4-10.2) mg/dL Total Bilirubin 0.7 (0.2-1.3) mg/dL AST 21 (14-36) IU/L ALT 20 (<35) IU/L Alkaline Phosphatase 157 H (38-126) U/L Total Protein 7.1 (6.3-8.2) g/dL Albumin 4.4 (3.5-5.0) g/dL Globulin 2.7 (1.7-4.1) g/dL Albumin/Globulin Ratio 1.6 (1.0-2.8) Lipase 66 (23-300) U/L Urine RBC 1-5/hpf (0-5/HPF) Urine WBC None seen (0-5/HPF) Ur Squamous Epith Cells None seen (0-5/HPF) Urine Bacteria None seen (None) Ur Culture Indicated? Cult not indicated Vol Urine Centrifuged 10ml (spun) Urine Test Negative (Negative) Point of care testing: Urine Dip Bedside Urine Glucose Negative Bedside Urine Bilirubin - Negative Bedside Urine Ketone - Negative Urine Specific Cross 1.030 Bedside Urine Occult Blood + Bedside Urine pH 5.5 Bedside Urine Protein - Negative Bedside Urine Urobilinogen - Negative Bedside Urine Nitrite - Negative Bedside Urine Leukocytes - Negative Esterase Imaging Data CT scan - abdomen/pelvis: Radiologist's Impression: [address] [address] [address] Scan Report Signed Patient: Anne Marie Stanley MR#: [id number] : 1985 Acct:[id number] Age/Sex: 38 / F Date of Service: 02/01/24 Loc: ED Accession Number: [id number] Procedure: CT abdomen pelvis w con Ordering Provider: Gayathri Robertson D.O. PROCEDURE: CT ABDOMEN PELVIS W CON INDICATIONS: RLQ pain, mild to back TECHNIQUE: After the administration of intravenous contrast, axial sections acquired from the lung bases to the pubic symphysis. Coronal and sagittal reformats were performed. For radiation dose reduction, the following was used: automated exposure control, adjustment of mA and/or kV according to patient size. COMPARISON: None. FINDINGS: Image quality: Diagnostic. Lower Chest: No significant findings. ABDOMEN: Liver: No solid mass. Gallbladder: Absent Biliary ducts: No biliary dilation. Pancreas: No ductal dilation. Spleen: Size is within normal limits. Adrenal Glands: No adrenal nodules. Kidneys and Ureters: No hydronephrosis. No solid mass. No complex renal cystic lesion which requires follow up. Stomach and Bowel: Normal colonic caliber, without significant wall thickening. Normal appendix. No significant diverticular disease. Peritoneum: No abnormal intraperitoneal fluid. No free air. Ventral Wall: No significant ventral hernia. Abdominal Nodes: No retroperitoneal or mesenteric adenopathy by size criteria. Vessels: Aorta and inferior vena cava are normal in size. PELVIS: Pelvic Organs: Symmetric ovaries. Bladder: No bladder wall thickening, accounting for underdistention. Pelvic Nodes: No enlarged lymph nodes. Miscellaneous: No inguinal hernias are seen. Bones: No aggressive osseous abnormality. Grade 1 anterolisthesis L5 on S1 due to pars defects. IMPRESSION: No acute abnormality to explain the patient's right lower quadrant pain. Normal appendix. No nephrolithiasis. Symmetric ovaries. Cholecystectomy. Dictated by: Luan Romero M.D. on 02/01/2024 at 20:21 Approved by: Luan Romero M.D. on 02/01/2024 at 20:27 US - CLINICAL TRIAL LEADER: Radiologist's Impression: [place] [address] Ultrasound Report Signed Patient: Anne Marie Stanley MR#: [id number] : 1985 Acct:[id number] Age/Sex: 38 / F Date of Service: 02/01/24 Loc: ED Accession Number: [id number] Procedure: US pelvic complete Ordering Provider: Gayathri Robertson D.O. PROCEDURE: US PELVIC COMPLETE INDICATIONS: RLQ pain TECHNIQUE: Real-time scanning was performed of the pelvic organs, with image documentation. Additional endovaginal scanning was necessary due to incomplete visualization of the adnexal and endometrial structures by transabdominal scanning. Color and spectral Doppler of the ovaries was performed. COMPARISON: None. FINDINGS: Uterus: Uterus is anteverted and normal in size at 7.5 x 3.8 x 4.1 cm. The myometrium is homogeneous. The endometrium measures 5 mm combined thickness. Ovaries: The right ovary measures 3.1 x 4.0 x 2.3 cm, with a calculated ovarian volume of 15 cc. The left ovary measures 3.4 x 2.7 x 2.7 cm, with a calculated ovarian volume of 13 cc. The ovaries have a normal sonographic appearance. Greater than 12 follicles can be seen in each ovary. No adnexal masses are seen. Normal waveforms visualized. Other: No pathologic free abdominal or pelvic fluid. IMPRESSION: No acute abnormality. Greater than 12 follicles per ovary, which can be seen in the clinical setting of PCOS. We strive to produce accurate, complete, and clear reports of imaging services. To assist us in improving patient care, this report was composed using standard report templates and voice recognition software. Therefore, it may contain abnormal punctuation, insertions and/or omissions. Occasional wrong-word or sound-alike substitutions may occur. Though we review the report and make efforts to correct it, we do recommend that the report be read carefully in proper context to recognize any text inaccuracies. Dictated by: Luan Romero M.D. on 02/01/2024 at 21:21 Approved by: Luan Romero M.D. on 02/01/2024 at 21:22 [facility] Narrative Medical decision making narrative: 38-year-old female history of PCOS has had prior ovarian cyst but states they have only been a problem when she is needs to hard have not typically cause pain also has a history of kidney stones but states symptoms feel different. He is quite tender particularly in the right lower quadrant. Chemistry shows sodium 139 potassium of 4 chloride of 111 CO2 of 20 BUN 19 creatinine 0.72 glucose of 95 calcium is 9.2, bilirubin is 0.7 AST is 21 ALT is 20 alk-phos is 157, lipase is 66. white count of 7.9 hemoglobin of 12.5 platelets of 267. Urine is negative point of is negative for nitrates leuks, negative for protein urobilinogen, negative for ketones glucose, patient has a little bit of blood micro shows 1-5 RBCs. Patient has possibility of kidney stone although blood could be from her recent vaginal bleeding. She is quite tender in right lower quadrant so CT abdomen pelvis with contrast was obtained. CT shows no acute change normal appendix no nephrolithiasis no hydro, symmetric ovaries, prior cholecystectomy there is a grade 1 anterolisthesis L5 on S1 due to pars defect but otherwise normal-appearing CT. Pelvic ultrasound was obtained as patient appeared quite uncomfortable no acute abnormality, greater than 12 follicles per ovary which could be sitting and PCOS but otherwise normal sonographic appearance with normal waveforms and no adnexal masses. Patient had Toradol which was somewhat helpful, had IV Tylenol. She was still uncomfortable but prefers to avoid narcotics. On recheck patient is uncomfortable she would like to do a dose of pain medication through the IV. We will monitor for appeared of time as she has had bad outcomes with fentanyl but states Dilaudid makes her joints hurt. We will give a dose of morphine. Patient states she is tolerated oral narcotics in the past although they make her feel nauseated but she notes she has Zofran at home. Discussed need for follow-up she has follow up in place with primary care on Thursday already. Discussed return precautions for next 24 hours although imaging was negative she was having worsening symptoms should come back. Discharge Plan Departure Patient Disposition: Home Clinical Impression: Abdominal pain Activity Restrictions/Additional Instructions: Follow up for recheck in the next 24 hours if your symptoms are not improving. Your imaging today shows a normal appendix, no obvious kidney stones or changes to your ovaries. If you are having persistent symptoms you should be re-evaluated. You can take Tylenol up to a 1000 mg every 6 hours and/or ibuprofen up to 600 mg every 6 hours. If inadequate for pain you can take Jay 1-2 tablets every 6 hours as needed. Do not take this medication at the same time as Tylenol. Maximum amount of Tylenol you can take in 24 hours is 4000 mg. This medication can make you sleepy do not drive, perform hazardous activities or make any major decisions while taking it. This medication will make you constipated please take a stool softener once to twice daily until stools are soft and regular. Return for fevers, worsening abdominal back or flank pain, persistent vomiting, black or bloody stools, inability to urinate or other new or concerning changes. Prescriptions: No Action bupropion HCl 300 mg tablet extended release 24 hr 300 mg PO DAILY doxycycline hyclate 100 mg tablet 100 mg PO BID ketoconazole 2 % shampoo topical clobetasol 0.05 % solution topical hyoscyamine sulfate 0.125 mg tablet 0.125 mg PO Q6H PRN (Reason: cramps) albuterol sulfate 90 mcg/actuation Hfa Aerosol Inhaler 2 puff INHALATION QID PRN (Reason: sob) topiramate 50 mg tablet 50 mg PO BID ursodiol 500 mg tablet 500 mg PO TID Referrals: Olinda Long ARNP [Primary Care Provider] - Stand Alone Forms: Patient Portal/API
--- NOTE | 2024-02-01 19:54 | DI.CT.S_ITS ---
PROCEDURE: CT ABDOMEN PELVIS W CON INDICATIONS: RLQ pain, mild to back TECHNIQUE: After the administration of intravenous contrast, axial sections acquired from the lung bases to the pubic symphysis. Coronal and sagittal reformats were performed. For radiation dose reduction, the following was used: automated exposure control, adjustment of mA and/or kV according to patient size. COMPARISON: None. FINDINGS: Image quality: Diagnostic. Lower Chest: No significant findings. ABDOMEN: Liver: No solid mass. Gallbladder: Absent Biliary ducts: No biliary dilation. Pancreas: No ductal dilation. Spleen: Size is within normal limits. Adrenal Glands: No adrenal nodules. Kidneys and Ureters: No hydronephrosis. No solid mass. No complex renal cystic lesion which requires follow up. Stomach and Bowel: Normal colonic caliber, without significant wall thickening. Normal appendix. No significant diverticular disease. Peritoneum: No abnormal intraperitoneal fluid. No free air. Ventral Wall: No significant ventral hernia. Abdominal Nodes: No retroperitoneal or mesenteric adenopathy by size criteria. Vessels: Aorta and inferior vena cava are normal in size. PELVIS: Pelvic Organs: Symmetric ovaries. Bladder: No bladder wall thickening, accounting for underdistention. Pelvic Nodes: No enlarged lymph nodes. Miscellaneous: No inguinal hernias are seen. Bones: No aggressive osseous abnormality. Grade 1 anterolisthesis L5 on S1 due to pars defects. IMPRESSION: No acute abnormality to explain the patient's right lower quadrant pain. Normal appendix. No nephrolithiasis. Symmetric ovaries. Cholecystectomy. Dictated by: Luan Romero M.D. on 02/01/2024 at 20:21 Approved by: Luan Romero M.D. on 02/01/2024 at 20:27
[2024-02-01] MEDS: SODIUM CHLORIDE 0.9% 1,000 ML 1000 ML IV (20:16)
[2024-02-01] MEDS: KETOROLAC 30 MG/ML VIAL 15 MG IV (20:16)
--- NOTE | 2024-02-01 20:33 | DI.US.S_ITS ---
PROCEDURE: US PELVIC COMPLETE INDICATIONS: RLQ pain TECHNIQUE: Real-time scanning was performed of the pelvic organs, with image documentation. Additional endovaginal scanning was necessary due to incomplete visualization of the adnexal and endometrial structures by transabdominal scanning. Color and spectral Doppler of the ovaries was performed. COMPARISON: None. FINDINGS: Uterus: Uterus is anteverted and normal in size at 7.5 x 3.8 x 4.1 cm. The myometrium is homogeneous. The endometrium measures 5 mm combined thickness. Ovaries: The right ovary measures 3.1 x 4.0 x 2.3 cm, with a calculated ovarian volume of 15 cc. The left ovary measures 3.4 x 2.7 x 2.7 cm, with a calculated ovarian volume of 13 cc. The ovaries have a normal sonographic appearance. Greater than 12 follicles can be seen in each ovary. No adnexal masses are seen. Normal waveforms visualized. Other: No pathologic free abdominal or pelvic fluid. IMPRESSION: No acute abnormality. Greater than 12 follicles per ovary, which can be seen in the clinical setting of PCOS. We strive to produce accurate, complete, and clear reports of imaging services. To assist us in improving patient care, this report was composed using standard report templates and voice recognition software. Therefore, it may contain abnormal punctuation, insertions and/or omissions. Occasional wrong-word or sound-alike substitutions may occur. Though we review the report and make efforts to correct it, we do recommend that the report be read carefully in proper context to recognize any text inaccuracies. Dictated by: Luan Romero M.D. on 02/01/2024 at 21:21 Approved by: Luan Romero M.D. on 02/01/2024 at 21:22
[2024-02-01] MEDS: ACETAMINOPHEN IV 1,000 MG/100 ML VIAL 400 MG IV (21:06)
[2024-02-01] MEDS: MORPHINE 4 MG/ML INJ IV (21:56)
[2024-02-01] MEDS: HYDROCODONE/ACET 5/325 PREPACK 1 BOTTLE MISC (22:30)
== END 2024-02-01 22:37 | disposition home or self-care (01) ==
PROVIDERS: Emergency Medicine; Emergency Provider Emergency Medicine; Family Provider Nurse Practitioner; PCP Nurse Practitioner
DX: R10.31 Right lower quadrant pain (principal); E28.2 Polycystic ovarian syndrome
CPT/HCPCS: 36415; 74177; 76830; 76856; 80053; 81003; 81015; 81025; 83690; 85025; 93975; 96365; 96375; 99284; J0136; J1885; J2270; J2405; Q9967

== ENCOUNTER → 2024-02-16 07:05 | Outpatient (CLI) | payer OTHER, SELFPAY ==
[2024-02-16 08:38] LABS: Add Manual Diff / Slide Review NO; Basophils Absolute Auto 100 /uL (0-100); Basophils Percent Auto 1.2 % (0-2); Eosinophils Absolute Auto 100 /uL (0-450); Eosinophils Percent Auto 1.8 % (2-4); Hematocrit 38.2 % (36-46); Hemoglobin 12.5 g/dL (12.0-16.0); Lymphocytes Absolute Auto 1300 /uL (1100-4500); Lymphocytes Percent Auto 19.9 % (25-40); Mean Corpuscular HGB Conc 32.7 % (30-36); Mean Corpuscular Hemoglobin 26.7 PG (26-34); Mean Corpuscular Volume 81.6 fL (80-100); Monocytes Absolute Auto 400 /uL (0-900); Monocytes Percent Auto 6.1 % (3-14); Neutrophils Absolute Auto 4700 /uL (1500-7000); Platelet Count 248 X10^3/uL (150-400); Red Blood Cell Count 4.68 X10^6/uL (4.0-5.2); Red Cell Distribution Width 15.3 % (11.6-14.8); White Blood Cell Count 6.6 X10^3/uL (4.5-11.0)
== END ==
PROVIDERS: Family Provider Nurse Practitioner; PCP Nurse Practitioner; Referring Provider Nurse Practitioner; Visit Provider Nurse Practitioner
DX: R10.31 Right lower quadrant pain (principal)
CPT/HCPCS: 36415; 85025

== ENCOUNTER → 2024-03-30 17:55 | Outpatient (CLI) | payer OTHER, SELFPAY | PROVIDERS: Family Provider Nurse Practitioner; PCP Nurse Practitioner; Referring Provider Internal Medicine; Visit Provider Internal Medicine | DX: Z23 Encounter for immunization (principal) | CPT/HCPCS: 90471; 90656 ==

== ENCOUNTER → 2024-04-01 11:23 | Outpatient (CLI) | payer OTHER, SELFPAY | PROVIDERS: Family Provider Nurse Practitioner; PCP Nurse Practitioner; Visit Provider Registered Nurse | DX: R30.0 Dysuria (principal) | CPT/HCPCS: 87086 ==

== ENCOUNTER 2024-07-15 12:50 | Emergency (ER) | payer OTHER, SELFPAY ==
[2024-07-15] VITALS (7 sets, daily range): BP systolic 117–147; BP diastolic 67–82; PULSE 66–77; RESP 12–18; TEMP 36.6–37; O2SAT 98–100; BMI 45.1
--- NOTE | 2024-07-15 13:43 | PC.NURSE ---
Pt up ambulatory to BR. Steady gait noted. No signs of distress.
--- NOTE | 2024-07-15 15:01 | ED.ALLEREA ---
HPI - Allergic Reaction General Chief complaint: Allergic Reaction Stated complaint: allergic reaction to chocolate Time Seen by Provider: 07/15/24 14:37 Source: patient Mode of arrival: Wheelchair History of Present Illness HPI narrative: Patient is a 38-year-old female history of primary biliary sclerosis presenting allergic reaction. She reports they have a family anaphylactic reaction to cocoa butter. She had some chocolate today at work which he typically does not have and instantly felt that her tongue and mouth for tingling in the her throat was swelling. She does work in a medical office they gave her Benadryl just prior to arrival. She has no hives or difficulty breathing. She has never had an anaphylactic reaction. She has been monitored in the ED for over 2 hours and has no further reaction in his overall feeling much better Related Data Home Medications Medication Instructions Recorded Confirmed albuterol sulfate 90 mcg/actuation 2 puff inhalation QID PRN sob 03/12/23 12/14/23 aerosol inhaler hyoscyamine sulfate 0.125 mg tablet 0.125 mg PO Q6H PRN cramps 03/12/23 12/14/23 topiramate 50 mg tablet 50 mg PO BID 03/12/23 12/14/23 ursodiol 500 mg tablet 500 mg PO TID 03/12/23 12/14/23 bupropion HCl 300 mg 24 hr tablet, 300 mg PO DAILY 12/14/23 12/14/23 extended release clobetasol 0.05 % scalp solution topical 12/14/23 12/14/23 doxycycline hyclate 100 mg tablet 100 mg PO BID 12/14/23 12/14/23 ketoconazole 2 % shampoo topical 12/14/23 12/14/23 Previous Rx's Medication Instructions Recorded epinephrine 0.3 mg/0.3 mL 0.3 mg (0.3 mL) IM Q5-15M PRN 07/15/24 injection, auto-injector anaphylaxis #2 ea Allergies Allergy/AdvReac Type Severity Reaction Status Date / Time Sulfa (Sulfonamide Allergy Intermediate Verified 07/15/24 13:02 Antibiotics) [SULFA (SULFONAMIDE ANTIBIOTICS)] cefaclor [From CECLOR] Allergy Unknown Verified 07/15/24 13:02 latex [LATEX] Allergy Unknown Hives Verified 07/15/24 13:02 oxycodone [OXYCODONE] Allergy Unknown Anxiety Verified 07/15/24 13:02 Penicillins [PENICILLINS] Allergy Unknown Verified 07/15/24 13:02 fentanyl Allergy Palpitation Verified 07/15/24 13:02 s Patient History Medical History History of hearing loss History of gastroesophageal reflux (GERD) History of depression History of asthma History of anxiety Surgical History History of cholecystectomy (~11/02/17) History of esophagogastroduodenoscopy (EGD) (11/18/19) History of liver biopsy History of foot surgery History of surgery (~2015) History of colonoscopy (~2022) Social History marital status: household members: significant other housing: house Smoking Status: Never smoker alcohol intake: never Smoking Status: Never smoker alcohol intake frequency: 0-2 drinks per day Exam Initial Vital Signs Initial Vital Signs: Vital Signs Temperature 98 F 07/15/24 12:56 Pulse Rate 76 07/15/24 12:56 Respiratory Rate 12 07/15/24 12:56 Blood Pressure 142/82 H 07/15/24 12:56 Pulse Oximetry 100 07/15/24 12:56 Oxygen Delivery Method Room Air 07/15/24 12:56 GENERAL: Alert pleasant well-appearing 38-year-old female and in no acute distress. HEENT: Head atraumatic,EOMI, pupils reactive, face symmetric, moist mucous membranes PHARYNX: No uvula swelling deviation no tongue swelling no lip swelling no stridor CARDIOVASCULAR: Regular rate and rhythm without murmurs, rubs or gallops. RESPIRATORY: Breath sounds equal bilaterally, no wheezes rales or rhonchi. ABDOMEN: Soft, nontender. Normoactive bowel sounds all 4 quadrants. No guarding or rebound. EXTREMITIES: Normal range of motion, no clubbing or edema. Neurovascularly intact NEUROLOGICAL: Alert and oriented x4.Normal gait and speech. Cranial nerves II through XII grossly intact. SKIN: Warm, dry, no laceration, no petechiae, no rashes or lesions. Course Vital Signs Vital signs: Vital Signs - 8 hr 07/15/24 12:56 07/15/24 13:00 07/15/24 13:00 Temperature 98 F Pulse Rate 76 72 Respiratory Rate 12 Blood Pressure 142/82 H 142/82 H Pulse Oximetry 100 100 Oxygen Delivery Method Room Air 07/15/24 13:30 07/15/24 13:30 07/15/24 14:00 Temperature Pulse Rate 77 67 Respiratory Rate Blood Pressure 120/72 Pulse Oximetry 99 98 Oxygen Delivery Method 07/15/24 14:00 07/15/24 14:30 07/15/24 14:30 Temperature Pulse Rate 72 Respiratory Rate Blood Pressure 139/79 147/76 H Pulse Oximetry 98 Oxygen Delivery Method 07/15/24 15:00 07/15/24 15:00 07/15/24 15:41 Temperature 98.6 F Pulse Rate 70 66 Respiratory Rate 18 16 Blood Pressure 117/67 133/78 Pulse Oximetry 99 99 Oxygen Delivery Method Room Air MDM - Allergic Reaction MDM Narrative Medical decision making narrative: Patient 38-year-old female 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 She had a piece of chocolate felt some tingling in her mouth. She received Benadryl prior to arrival she has no evidence of anaphylaxis no angioedema she has no urticaria or rash. She has been monitored here in the ED for 2 hours no need for any further medication including prednisone. I have discussed with her maybe needing allergy testing also given her prescription for an EpiPen. At this time both she and her mother feel comfortable going home Discharge Plan Departure Patient Disposition: Home Clinical Impression: Allergic reaction Instructions: DI for Anaphylaxis Activity Restrictions/Additional Instructions: *You have been diagnosed with allergic reaction *What to do: At this time you may benefit from allergy testing please talk with your primary care provider about the *Continue to take medications as directed Epinephrine pen if needed for difficulty breathing and throat swelling Benadryl 25-50 mg every 6 hours for itching *Follow up with your primary care provider in 2-3 days or call [phone] *Return to ER if you should have increased difficulty breathing tongue swelling lip swelling or any new, worsening or concerning symptoms Prescriptions: New epinephrine 0.3 mg/0.3 mL auto-injector 0.3 mg IM Q5-15M PRN (Reason: anaphylaxis) Qty: 2 0RF Rx Instructions: do not exceed 3 doses per episode No Action bupropion HCl 300 mg tablet extended release 24 hr 300 mg PO DAILY doxycycline hyclate 100 mg tablet 100 mg PO BID ketoconazole 2 % shampoo topical clobetasol 0.05 % solution topical hyoscyamine sulfate 0.125 mg tablet 0.125 mg PO Q6H PRN (Reason: cramps) albuterol sulfate 90 mcg/actuation Hfa Aerosol Inhaler 2 puff INHALATION QID PRN (Reason: sob) topiramate 50 mg tablet 50 mg PO BID ursodiol 500 mg tablet 500 mg PO TID Referrals: Olinda Long, [facility] [Primary Care Provider] - Stand Alone Forms: Patient Portal/API/Survey, Work Release Note
== END 2024-07-15 15:42 | disposition home or self-care (01) ==
PROVIDERS: Emergency Provider Emergency Medicine; Family Provider Nurse Practitioner; PCP Nurse Practitioner
DX: T78.49XA Other allergy, initial encounter (principal); Z88.2 Allergy status to sulfonamides
CPT/HCPCS: 99281

== ENCOUNTER → 2024-08-31 08:18 | Outpatient (CLI) | payer OTHER, SELFPAY | LOC: RESP 08:18 | PROVIDERS: Family Provider Nurse Practitioner; PCP Nurse Practitioner Family; Referring Provider Nurse Practitioner Family; Visit Provider Nurse Practitioner Family | DX: J45.20 Mild intermittent asthma, uncomplicated (principal); R05.9 Cough, unspecified | CPT/HCPCS: 94060; 94726; 94729 ==

== ENCOUNTER → 2024-09-27 17:12 | Outpatient (CLI) | payer OTHER, SELFPAY ==
[2024-09-27 17:52] LABS: Hematocrit 38.6 % (36-46); Hemoglobin 12.8 g/dL (12.0-16.0); Mean Corpuscular HGB Conc 33.2 % (30-36); Mean Corpuscular Hemoglobin 26.9 PG (26-34); Mean Corpuscular Volume 81.1 fL (80-100); Platelet Count 244 X10^3/uL (150-400); Red Blood Cell Count 4.76 X10^6/uL (4.0-5.2); Red Cell Distribution Width 16.4 % (11.6-14.8); White Blood Cell Count 7.7 X10^3/uL (4.5-11.0)
[2024-09-27 17:57] LABS: INR 1.1 (0.9-1.3); Prothrombin Time 12.1 SECONDS (9.4-12.5)
[2024-09-27 18:02] LABS: Alanine Aminotransferase 21 IU/L (<35); Albumin 4.6 g/dL (3.5-5.0); Albumin Globulin Ratio 1.8 (1.0-2.8); Alkaline Phosphatase 119 U/L (38-126); Aspartate Aminotransferase 23 IU/L (14-36); Bilirubin Total 0.9 mg/dL (0.2-1.3); Blood Urea Nitrogen 19 mg/dL (7-17); Calcium 9.3 mg/dL (8.4-10.2); Carbon Dioxide 20 mmol/L (22-32); Chloride 108 mmol/L (98-107); Estimated Glomerular Filt Rate > 60 mL/min (>60); Globulin 2.5 g/dL (1.7-4.1); Glucose 90 mg/dL (70-100); HEMOLYSIS < 15 (0-50); Potassium 3.8 mmol/L (3.4-5.1); Sodium 139 mmol/L (137-145); Total Protein 7.1 g/dL (6.3-8.2)
== END ==
PROVIDERS: Family Provider Nurse Practitioner; PCP Nurse Practitioner Family; Referring Provider Nurse Practitioner Family; Visit Provider Internal Medicine
DX: K74.3 Primary biliary cirrhosis (principal)
CPT/HCPCS: 36415; 80053; 85027; 85610

== ENCOUNTER → 2024-10-25 14:54 | Outpatient (CLI) | payer OTHER, SELFPAY ==
--- NOTE | 2024-10-25 | DI.US.S_ITS ---
PROCEDURE: US ABDOMEN LIMITED INDICATIONS: PRIMARY BILIARY CHOLANGITITS TECHNIQUE: Real-time scanning was performed of the abdominal and retroperitoneal organs, with image documentation. COMPARISON: Located Within [facility], CT, CT ABDOMEN PELVIS W CON, 02/01/2024, 19:57. FINDINGS: Liver: Liver is normal in size and diffusely increased in echogenicity. Hepatopetal flow in the main portal vein. Gallbladder: Status post cholecystectomy. Biliary ducts: Intrahepatic bile ducts are non-dilated. Extrahepatic bile duct caliber measures 5.9 mm. Normal is 6-7 mm or less in diameter, or 10 mm or less post-cholecystectomy. Pancreas: Visualized portions of the pancreas are sonographically normal. Miscellaneous: No free abdominal fluid. IMPRESSION: Diffusely increased hepatic echogenicity is nonspecific, but most commonly encountered in the setting of hepatic steatosis. However, other causes of hepatocellular disease are not excluded. Recommend clinical correlation. No biliary duct dilatation. Approved by: Richard Browning M.D. on 10/25/2024 at 19:34
== END ==
LOC: US 14:55
PROVIDERS: Family Provider Nurse Practitioner; PCP Nurse Practitioner Family; Referring Provider Internal Medicine; Visit Provider Internal Medicine
DX: K74.3 Primary biliary cirrhosis (principal); Z90.49 Acquired absence of other specified parts of digestive tract
CPT/HCPCS: 76705

== ENCOUNTER → 2024-11-30 07:39 | Outpatient (CLI) | payer OTHER, SELFPAY | LOC: CAR 07:39 | PROVIDERS: Family Provider Nurse Practitioner; PCP Nurse Practitioner Family; Referring Provider Nurse Practitioner Family; Visit Provider Nurse Practitioner Family | DX: R00.2 Palpitations (principal) | CPT/HCPCS: 93242 ==

== ENCOUNTER → 2024-12-10 10:37 | Outpatient (CLI) | payer OTHER, SELFPAY ==
[2024-12-13 13:13] LABS: Crab IgE <0.10 kU/L (Class 0); D farinae IgE 0.26 kU/L (Class 0/I); Shrimp IgE 0.13 kU/L (Class 0/I); Timothy Grass IgE <0.10 kU/L (Class 0)
[2024-12-13 19:38] LABS: Immunoglobulin E 32 IU/mL (6-495)
== END ==
PROVIDERS: PCP Nurse Practitioner Family; Referring Provider Physician Assistant Medical; Visit Provider Physician Assistant Medical
DX: T78.1XXA Other adverse food reactions, not elsewhere classified, initial encounter (principal)
CPT/HCPCS: 36415; 82785; 86003

== ENCOUNTER → 2025-01-25 12:22 | Outpatient (CLI) | payer OTHER, SELFPAY ==
[2025-01-25 13:21] LABS: Iron 54 ug/dL (37-170)
[2025-01-25 13:31] LABS: Percent Iron Saturation 17 % (15-50); Total Iron Binding Capacity 319 ug/dL (265-497)
[2025-01-25 13:57] LABS: Ferritin 40 ng/mL (6-137)
== END ==
PROVIDERS: PCP Nurse Practitioner Family; Referring Provider Pediatrics; Visit Provider Pediatrics
DX: D50.9 Iron deficiency anemia, unspecified (principal); G25.81 Restless legs syndrome; G47.9 Sleep disorder, unspecified
CPT/HCPCS: 36415; 82728; 83540; 83550; 86140

== ENCOUNTER → 2025-01-27 09:14 | Outpatient (CLI) | payer OTHER, SELFPAY | LOC: LAB 09:15 | PROVIDERS: PCP Nurse Practitioner Family; Visit Provider Nurse Practitioner Family | DX: N94.9 Unspecified condition associated with female genital organs and menstrual cycle (principal) | CPT/HCPCS: 87210 ==

== ENCOUNTER 2025-03-08 08:15 | Outpatient (RCR) | payer OTHER, SELFPAY ==
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
--- NOTE | 2024-11-16 07:46 | PT-OP ANOTE ---
Pt contacted front notifying that she had forgotten her visit and was still in bed. Apologized for missing it.
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
--- NOTE | 2025-02-15 10:49 | PT.OPPOC ---
Physical, Occupational & Speech Therapy At [facility] Current Diagnoses Muscle weakness (generalized) (02/15/25) Bicipital tendinitis, left shoulder (02/15/25) Abnormal posture (02/15/25) Visit Care Team Role Provider Type APPLE Mirza Family Provider Non-Staff Specialty: Nursing Address: [facility] Shasha Wong, [address], [place], [address] Email: TORI Singer- Attending Provider Advanced Diesel Truck Technician Primary Care Provider Referring Provider Specialty: Family Practice Address: [address] [place] [address], [id number] Phone: Fax: Email: [email or web address] Plan Of Care PT OP: Cervical/Upper Extremity Start: 02/15/25 07:34 Freq: Status: Active Protocol: Document 02/15/25 07:34 [facility] (Rec: 02/15/25 09:04 [facility] [id number]) Out-Patient Physical Therapy Visit Information Visit Information Visit Type Progress Note Visit Start Time 07:33 Visit Stop Time 08:13 Visit Number 17 Number of SPINE NURSE Visits 0 Progress Note Due 03/17/25 OP-PT Subjective Patient Comments Patient Comments Pain got bad enough the other day that she got a tordol shot. she was stretching her chest, bands, open book, sleeping with ice pack. It was all in UT region and couldn't get it to relax then started going down her arm. It was good before that. Wondering if it is d/t having to lift her foster dog Posture Evaluation [facility] Postural Classification System Elbow Flexion Test 3 Shoulder Strength Shoulder Manual Muscle Testing Left Flexion 4+ Good+ Extension 5 Normal Abduction (C5) 3+ Fair+ External Rotation 5 Normal Internal Rotation 5 Normal Horizontal Abduction 5 Normal Horizontal Adduction 5 Normal Comments pain abd and slight w/flex Elbow/Forearm Strength Elbow and Forearm Manual Muscle Testing Left Flexion (C6) 5 Normal Extension (C7) 5 Normal Pronation 5 Normal Supination 4+ Good+ Therapeutic Exercises Sitting Exercises rib Sitting Exercise 1st rib caudal w/strap Name Side left Reps/Minutes 12 stretches Sitting Exercise 1. UT w/arm pull 2. LS w/arm pull 3. scalenes Name Side left Reps/Minutes 30 sec ea Other Exercises isometrics Other Exercise Name BMMT and EFT Manual Therapy Treatment Consent Patient gave verbal Yes consent for manual treatment Soft Tissue Mobilization post Comments L rhomboids , UT, mid trap w/cupping and rolling; L post delt cupping superior Body Location L UT, LS, scalenes, SCM Mobilization Type Rolling Comments w/cervical SB Joint Mobilizations thoracic Comments transverse T 5 c/r ; PA T3-5 c/r ribs Comments caudal L 1-3 rib & UPA L GHJ Comments L post glide Physical Therapy Assessment Goals pain Impairment 11/29 constant, 01/29 w/activity Short Term Goal (STG Pt will report only intermittently taking alieve/ ) ibuprofen for pain 06/14-no change 07/13-no change 08/17-dec pain during the day overall and pain w/laying on shoulder STG Duration achieved 10/19 Halfway Goal (LTG) pt will report no pain greater than 1/10 during day. 07/13-this week 10/29 08/17-feels like it is less /10-worse recently in last couple weeks 12/07-twinges 12/29; baseline soreness 10/29 01/11-1-2/10 during the day 01/18-10 since thursday 02/15-2-08/29 typically but 12/29 3 days ago when pain inc LTG Duration 05/04 strength Short Term Goal (STG Pt will be indep w/HEP ) STG Duration achieved advancing as able Administrative Project Coordinator Goal (LTG) Pt will score at least 4+/5 on LUE MMT and at least 4/5 on EFT to show improved stability to dec reports of pain 06/14-some improvement 07/13-improving sterngth but still painful 08/17-improved but pain w/abd 12/07-some dec, some inc-dec consistency w/exercises 01/11-improving 01/18-worse since flare up 02/15-mild improvement LTG Duration 05/04 Assessment Summary Assessment Pt has not been seen in a month d/t scheduling. She cont to be weak in abd but is overall improving otherwise. Pain today appears to be more associated w/ upper ribs and ACJ issues. She was given stretches to help address this. Cont PT for strength, dec pain and functional mobility. Physical Therapy Plan Frequency and Duration Frequency of 1x/Week Treatment Duration of 12 treatment (weeks) Plan of Care Start 02/15/25 Date Plan of Care End 05/16/25 Date Therapeutic Interventions Therapeutic Balance Training,Gait Training,Home Exercise Program, Interventions Joint Mobilizations,Manual Therapy,Neuromuscular Re- education,Patient/Caregiver Education,Self-Care/Home Management,Soft Tissue Mobilization,Taping,Therapeutic Activities,Therapeutic Exercises Modalities Cold Pack/Ice Massage,Electric Stimulation,Hot Packs, Infrared Therapy,Ultrasound Next Visit Focus/Plan Next Note Type Treatment Note Next Visit Plan cont to advance strength and stability and work on ROM for Hadd w/may pain Plan of Care Dates Plan of Care Start Date 02/15/25 Plan of Care End Date 05/16/25 Electronically Signed by: Rosalee Barrera, PT 02/15/25 [id number] If you are in agreement with this Plan of Care, please return a signed and dated copy. I have reviewed this Plan of Care and certify that the skilled therapy services above are required to meet the patient?s needs. Physician Signature Date Printed Name and Credentials Clinical Instructor Signature Printed Name and Credentials
--- NOTE | 2025-02-22 08:19 | PT.OTN ---
Current Diagnoses Muscle weakness (generalized) (02/22/25) Bicipital tendinitis, left shoulder (02/22/25) Abnormal posture (02/22/25) Physical Therapy Treatment Note PT OP: Cervical/Upper Extremity Start: 02/15/25 07:34 Freq: Status: Active Protocol: Document 02/22/25 07:30 [facility] (Rec: 02/22/25 08:19 [facility] [id number]) Out-Patient Physical Therapy Visit Information Visit Information Visit Type Treatment Note Visit Start Time 07:33 Visit Stop Time 08:13 Visit Number 18 Number of CARPENTER Visits 0 Progress Note Due 03/17/25 OP-PT Subjective Patient Comments Patient Comments Pt reports she feels scap area and UT aea feels liek it is moving. It is very random and uncomfortable. Pain still pretty constant. Thursday was weird though because R side of neck got sore and stiff where couldn't turn R after work. It worked itself out. Therapeutic Exercises Prone Exercises multidirectional Prone Exercise Name start behind back to in front to row down to behind back Side bilateral Equipment Used 1# Reps/Minutes 6 ER Prone Exercise Name 90/90 Side bilateral Equipment Used 2# Reps/Minutes 10 Habd Prone Exercise Name palm down Side bilateral Resistance over ball Equipment Used 2# Reps/Minutes 10 Sitting Exercises chin tuck Equipment Used orange band Reps/Minutes 15 self release Sitting Exercise review of use of cane Name rib Sitting Exercise 1st rib caudal w/strap Name Side left Reps/Minutes 12 stretches Sitting Exercise 1. UT w/arm pull 2. LS w/arm pull 3. scalenes Name Side left Reps/Minutes 20 sec ea Manual Therapy Treatment Consent Patient gave verbal Yes consent for manual treatment Soft Tissue Mobilization post Body Position Prone Comments L rhomboids ,LS, UT, mid/LT trap, lats, superior Body Location L scalenes, SCM Mobilization Type Rolling Comments w/cervical SB Pec Comments L cupping Joint Mobilizations thoracic Comments PA T1-5 and UPA L Physical Therapy Assessment Goals pain Impairment /10 constant, 810 w/activity Short Term Goal (STG Pt will report only intermittently taking alieve/ ) ibuprofen for pain 06/14-no change 07/13-no change 08/17-dec pain during the day overall and pain w/laying on shoulder STG Duration achieved 10/19 Mcc Goal (LTG) pt will report no pain greater than 1/10 during day. 07/13-this week 10/29 08/17-feels like it is less /10-worse recently in last couple weeks 12/07-twinges 12/29; baseline soreness 10/29 01/11-1-2/10 during the day 01/18-4/10 since thursday 02/15-2-3/10 typically but 7/10 3 days ago when pain inc LTG Duration 05/04 strength Short Term Goal (STG Pt will be indep w/HEP ) STG Duration achieved advancing as able Accounts Receivable Analyst Goal (LTG) Pt will score at least 4+/5 on LUE MMT and at least 4/5 on EFT to show improved stability to dec reports of pain 06/14-some improvement 07/13-improving sterngth but still painful 08/17-improved but pain w/abd 12/07-some dec, some inc-dec consistency w/exercises 01/11-improving 01/18-worse since flare up 02/15-mild improvement LTG Duration 05/04 Assessment Summary Assessment Pt did well with exercises w/cues and handout given for neck stretches. Encouraged to work on this as pain appears to be more from neck at this time. Physical Therapy Plan Frequency and Duration Frequency of 1x/Week Treatment Duration of 12 treatment (weeks) Plan of Care Start 02/15/25 Date Plan of Care End 05/16/25 Date Next Visit Focus/Plan Next Note Type Treatment Note Next Visit Plan cont to advance strength and stability and work on ROM for Hadd w/dec pain
--- NOTE | 2025-03-08 09:38 | PT.OPDS ---
Current Diagnoses Muscle weakness (generalized) (03/08/25) Bicipital tendinitis, left shoulder (03/08/25) Abnormal posture (03/08/25) Visit Care Team Role Provider Type APPLE Mirza Family Provider Non-Staff Specialty: Nursing Address: [facility] [address], [address], [place], [address] [facility]: [facility] Attending Provider Advanced Confectionery Laboratory Manager Primary Care Provider Referring Provider Specialty: Family Practice Address: [address] [place] [address], [address] Phone: Fax: Email: [email or web address] Visit Number Visit Number 19 Discharge Summary PT OP: Cervical/Upper Extremity Start: 02/15/25 07:34 Freq: Status: Active Protocol: Document 03/08/25 08:20 [facility] (Rec: 03/08/25 09:31 [facility] [id number]) Out-Patient Physical Therapy Visit Information Visit Information Visit Type Discharge Summary Visit Start Time 08:20 Visit Stop Time 09:00 Visit Number 19 Number of INSTITUTE DIRECTOR Visits 0 Progress Note Due 03/17/25 OP-PT Subjective Patient Comments Patient Comments Less clicky in shoulder but still bugging him. Did see a chiro last week and will start up regularly in a couple weeks. Posture Evaluation [facility] Postural Classification System Elbow Flexion Test 4 Shoulder Strength Shoulder Manual Muscle Testing Left Flexion 4 Good Extension 5 Normal Abduction (C5) 3+ Fair+ External Rotation 5 Normal Internal Rotation 5 Normal Horizontal Abduction 5 Normal Horizontal Adduction 5 Normal Comments popping w/flex, pain abd Elbow/Forearm Strength Elbow and Forearm Manual Muscle Testing Left Flexion (C6) 5 Normal Extension (C7) 5 Normal Pronation 5 Normal Supination 5 Normal Comments soreness w/supination Therapeutic Exercises Prone Exercises ER Prone Exercise Name 90/90 Side bilateral Equipment Used 2# Reps/Minutes 10 Habd Prone Exercise Name palm down Side bilateral Resistance over ball Equipment Used 2# Reps/Minutes 10 ext Prone Exercise Name row Side bilateral Resistance 3# Equipment Used over ball Reps/Minutes 2x5 scaption Side bilateral Equipment Used 2# over ball Reps/Minutes 10 Comments thumb up, cues comfortable range Sidelying Exercises open book Side left Reps/Minutes 6 abd Side left Equipment Used 2# Reps/Minutes 15 Sitting Exercises chin tuck Reps/Minutes 5 rib Sitting Exercise 1st rib caudal w/strap Name Side left Reps/Minutes 5 stretches Sitting Exercise 1. UT w/arm pull 2. LS w/arm pull 3. scalenes Name Side left Reps/Minutes 20 sec ea Other Exercises isometrics Other Exercise Name BMMT and EFT Manual Therapy Treatment Consent Patient gave verbal Yes consent for manual treatment Soft Tissue Mobilization superior Body Location L scalenes, SCM Mobilization Type Rolling Comments w/cervical SB Pec Comments L w/abd Joint Mobilizations cervical Joint transverse C 4 and 5 R c/r GHJ Comments distraction and inf glide w/abd Physical Therapy Assessment Goals pain Impairment 11/29 constant, 01/29 w/activity Short Term Goal (STG Pt will report only intermittently taking alieve/ ) ibuprofen for pain 06/14-no change 07/13-no change 08/17-dec pain during the day overall and pain w/laying on shoulder STG Duration achieved 10/19 Shot Blast Equipment Operator Goal (LTG) pt will report no pain greater than 1/10 during day. 07/13-this week 10/29 08/17-feels like it is less /10-worse recently in last couple weeks 12/07-twinges 12/29; baseline soreness 10/29 01/11-1-2/10 during the day 01/18-10 since thursday 02/15-2-3/10 typically but 7/ 3 days ago when pain inc 03/08-3-410 constant, feels things move sometimes and uncomofortable LTG Duration 05/04 strength Short Term Goal (STG Pt will be indep w/HEP ) STG Duration achieved advancing as able Shelter Goal (LTG) Pt will score at least 4+/5 on LUE MMT and at least 4/5 on EFT to show improved stability to dec reports of pain 06/14-some improvement 07/13-improving sterngth but still painful 08/17-improved but pain w/abd 12/07-some dec, some inc-dec consistency w/exercises 01/11-improving 01/18-worse since flare up 02/15-mild improvement 03/08-EFT met, flex and abd still limited and painful LTG Duration 05/04 Assessment Summary Assessment Pt has plateaued in progress at this time and is indep w/HEP. At this time DC to HEP. Pt to see ortho next week and start chiro Physical Therapy Plan Discharge Physical Therapy Discharge Reasons Plateau in Progress
== END 2025-03-13 10:37 | disposition home or self-care (01) ==
LOC: PHYS 08:15
PROVIDERS: Family Provider Nurse Practitioner; PCP Nurse Practitioner Family; Referring Provider Nurse Practitioner Family; Visit Provider Nurse Practitioner Family
DX: M75.22 Bicipital tendinitis, left shoulder (principal); M62.81 Muscle weakness (generalized); R29.3 Abnormal posture
CPT/HCPCS: 97110; 97140; 97162; 97535

== ENCOUNTER → 2025-03-14 17:12 | Outpatient (CLI) | payer OTHER, SELFPAY ==
[2025-03-14 19:52] LABS: Influenza A - CEPHEID Flu A NEGATIVE (NEGATIVE); Influenza B - CEPHEID Flu B NEGATIVE (NEGATIVE)
[2025-03-14 19:53] LABS: COVID-19 CEPHEID 4-PLEX PCR Negative (Negative)
== END ==
PROVIDERS: PCP Nurse Practitioner Family; Visit Provider Registered Nurse
DX: R05.1 Acute cough (principal)
CPT/HCPCS: 87637

== ENCOUNTER → 2025-05-05 08:17 | Outpatient (CLI) | payer OTHER, SELFPAY ==
[2025-05-05 08:58] LABS: HEMOLYSIS < 15 (0-50); Iron 75 ug/dL (37-170)
[2025-05-05 09:10] LABS: Percent Iron Saturation 23 % (15-50); Total Iron Binding Capacity 331 ug/dL (265-497); Transferrin 300 mg/dL (206-381)
[2025-05-05 09:16] LABS: Vitamin D 25 Hydroxy (D3) 30.1 ng/mL (30.0-100.0)
[2025-05-05 09:34] LABS: Ferritin 48 ng/mL (6-137)
== END ==
PROVIDERS: PCP Nurse Practitioner Family; Referring Provider Nurse Practitioner Family; Visit Provider Pediatrics
DX: D50.9 Iron deficiency anemia, unspecified (principal); G25.81 Restless legs syndrome; G47.9 Sleep disorder, unspecified; E55.9 Vitamin D deficiency, unspecified
CPT/HCPCS: 36415; 82306; 82728; 83540; 83550

== ENCOUNTER → 2025-05-31 12:38 | Outpatient (CLI) | payer OTHER, SELFPAY ==
--- NOTE | 2025-05-31 12:39 | DI.CT.S_ITS ---
PROCEDURE: CT SINUS SCREEN WO CON INDICATIONS: MAXILLARY SINUS CYST TECHNIQUE: Noncontrast 3.0 mm axial images acquired from the frontal sinuses to the mid- sella, with coronal and sagittal reformats. For radiation dose reduction, the following was used: automated exposure control, adjustment of mA and/or kV according to patient size. COMPARISON: [facility], CT, CT SINUS SCREEN WO CON, 11/26/2022, 8:32. FINDINGS: Image quality: Excellent. Sinuses: Appearance of left-sided postsurgical change. There is soft tissue density with near complete opacification of the left maxillary sinus. No fluid level. Remaining sinuses demonstrate minimal scattered areas of mucosal thickening. Ostiomeatal Complexes: Ostiomeatal complexes are patent. Miscellaneous: Visualized intra-orbital contents are normal. No jenn bullosa. There is a paradoxical right middle turbinates. Rightward nasal septal deviation. IMPRESSION: Increased opacity filling the left maxillary sinus suspicious for large mucous retention cyst versus mucocele. No fluid level. Dictated by: Kathy Pacheco M.D. on 05/31/2025 at 15:36 Approved by: Kathy Pacheco M.D. on 05/31/2025 at 15:40
== END ==
LOC: CT 12:39
PROVIDERS: PCP Nurse Practitioner Family; Referring Provider Otolaryngology; Visit Provider Otolaryngology
DX: J32.0 Chronic maxillary sinusitis (principal); J34.1 Cyst and mucocele of nose and nasal sinus; R51.9 Headache, unspecified; Z98.890 Other specified postprocedural states
CPT/HCPCS: 70486